=== PATIENT | female | born 1990 | race Caucasian/White ===

== ENCOUNTER 2017-06-24 05:37 | Inpatient (IN) | payer MEDICAID ==
[2017-06-24] MEDS ORDERED: Sodium Chloride 0.9% 10 ML Syringe FLUSH PRN (05:50)
[2017-06-24] MEDS ORDERED: Sodium Chloride 0.9% 2.5 ML Syringe FLUSH PRN (05:50)
[2017-06-24] MEDS ORDERED: ceFAZolin 2 GM in Premix Bag 1 BAG IV ONE (05:50)
[2017-06-24] MEDS ORDERED: Oxytocin/0.9 % Sodium Chloride 30 UNIT/500 ML BAG IV SCH (06:00)
[2017-06-24] MEDS ORDERED: Citric Acid/Sodium Citrate Solution 30 ML Cup PO SCH (06:00)
[2017-06-24] MEDS: Lactated Ringers 1,000 ML IV SCH ×4 (06:05→19:26)
[2017-06-24] MEDS ORDERED: Morphine PF 10 MG/10 ML SDV ONE (07:32)
[2017-06-24] MEDS ORDERED: Oxytocin 10 Units/1 ML SDV ONE ×2 (07:33→07:34)
--- NOTE | 2017-06-24 07:39 | PCM.PREANE ---
Preanesthetic Assessment - Anesthesia/Transfusion/Family Hx Anesthesia History: Prior Anesthesia Without Reaction Family History of Anesthesia Reaction: No - Review of Systems General: No Symptoms, Other (nasal congestion) Pulmonary: No Symptoms Cardiovascular: No Symptoms Gastrointestinal: No Symptoms Neurological: No Symptoms Other: Reports: None - Physical Assessment NPO Status Date: 06/23/17 (except for clear liq at 0300 today) Height: 1.68 m Weight: 97.976 kg ASA Class: 2 Mental Status: Alert & Oriented x3 Airway Class: Mallampati = 2 Dentition: Reports: Normal Dentition ROM/Head Extension: Full Lungs: Clear to Auscultation, Normal Respiratory Effort Cardiovascular: Regular Rate, Regular Rhythm - Lab Values: Laboratory Last Values WBC 10.37 K/uL (4.0-11.0) 06/23/17 12:37 RBC 3.77 M/uL (4.30-5.90) L 06/23/17 12:37 Hgb 10.8 g/dL (12.0-16.0) L 06/23/17 12:37 Hct 32.9 % (36.0-46.0) L 06/23/17 12:37 MCV 87.3 fL (80.0-98.0) 06/23/17 12:37 MCH 28.6 pg (27.0-32.0) 06/23/17 12:37 MCHC 32.8 g/dL (31.0-37.0) 06/23/17 12:37 RDW Std Deviation 42.7 fl (28.0-62.0) 06/23/17 12:37 RDW Coeff of Marisela 14 % (11.0-15.0) 06/23/17 12:37 Plt Count 219 K/uL (150-400) 06/23/17 12:37 MPV 11.60 fL (7.40-12.00) 06/23/17 12:37 Nucleated RBC % 0.0 /100WBC 06/23/17 12:37 Nucleated RBCs # 0 K/uL 06/23/17 12:37 Blood Type A POSITIVE 06/23/17 12:37 Antibody Screen NEGATIVE 06/23/17 12:37 - Allergies Allergies/Adverse Reactions: Allergies Allergy/AdvReac Type Severity Reaction Status Date / Time No Known Allergies Allergy Verified 06/24/17 05:48 - Acknowledgements Anesthesia Type Planned: Spinal Pt an Appropriate Candidate for the Planned Anesthesia: Yes Alternatives and Risks of Anesthesia Discussed w Pt/Guardian: Yes Pt/Guardian Understands and Agrees with Anesthesia Plan: Yes Additional Comments: plan: intrathecal duramorph for post op analgesia PreAnesthesia Questionnaire - Past Health History Medical/Surgical History: Denies 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 USE Smoking Status *Q: Current Every Day Smoker Tobacco Use Within Last Twelve Months: Cigarettes Second Hand Smoke Exposure: Yes Recreational Drug Use History: No - CURRENT (IN HOUSE) MEDS Current Meds: Current Medications Citric Acid/Sodium Citrate (Bicitra Solution) 30 ml PO .ONCE ROSALINDA Lactated Ringer's (Ringers, Lactated) 1,000 mls @ 500 mls/hr IV .BOLUS ROSALINDA Last Admin: 06/24/17 06:05 Dose: 500 mls/hr Oxytocin/Sodium Chloride (Oxytocin 30 Unit/500 Ml-Ns) 30 unit in 500 mls @ 250 mls/hr IV TITRATE ROSALINDA Sodium Chloride (Saline Flush) 10 ml FLUSH ASDIRECTED PRN PRN Reason: Keep Vein Open Sodium Chloride (Saline Flush) 2.5 ml FLUSH ASDIRECTED PRN PRN Reason: Keep Vein Open Discontinued Medications Cefazolin Sodium/Dextrose 2 gm (/ Premix) 50 mls @ 100 mls/hr IV ONETIME ONE Stop: 06/24/17 06:19 Morphine Sulfate (Duramorph Pf) Confirm Administered Dose 10 mg .ROUTE .STK-MED ONE Stop: 06/24/17 07:33 Oxytocin (Pitocin) Confirm Administered Dose 10 unit .ROUTE .STK-MED ONE Stop: 06/24/17 07:34
[2017-06-24] MEDS ORDERED: diphenhydrAMINE 50 MG/ML SDV IVPUSH PRN ×2 (08:38→10:13)
[2017-06-24] MEDS ORDERED: fentaNYL 100 MCG/2 ML SDV IVPUSH PRN (08:38)
[2017-06-24] MEDS ORDERED: Phenylephrine/Normal Saline 100 MCG/ML 10 ML Syringe ONE (08:39)
[2017-06-24] MEDS ORDERED: fentaNYL 100 MCG/2 ML SDV ONE (08:50)
[2017-06-24] MEDS ORDERED: Ondansetron 4 MG/2 ML SDV ONE (08:55)
[2017-06-24] MEDS ORDERED: Nalbuphine 10 MG/1 ML Vial ONE (08:59)
--- NOTE | 2017-06-24 10:09 | PCM.POSTAN ---
POST ANESTHESIA ASSESSMENT - MENTAL STATUS Mental Status: Alert, Oriented - RESPIRATORY Respiratory Status: Respiratory Rate WNL, Airway Patent, O2 Saturation Stable - CARDIOVASCULAR CV Status: Pulse Rate WNL, Blood Pressure Stable - GASTROINTESTINAL GI Status: No Symptoms - PAIN Pain Score: 0 - POST OP HYDRATION Hydration Status: Adequate & Stable
[2017-06-24] MEDS ORDERED: Ibuprofen 800 MG Tab PO PRN (10:13)
[2017-06-24] MEDS ORDERED: Bisacodyl 10 MG Supp RECTAL PRN (10:13)
[2017-06-24] MEDS ORDERED: Lanolin 100% Cream 7 GM Tube TOP PRN (10:13)
[2017-06-24] MEDS ORDERED: Ondansetron 4 MG/2 ML SDV IV PRN (10:13)
[2017-06-24] MEDS ORDERED: Acetaminophen/oxyCODONE 325-5 MG Tab PO PRN (10:13)
--- NOTE | 2017-06-24 10:24 | PCM.OPNOTE ---
- General Post-Op/Procedure Note Date of Surgery/Procedure: 06/24/17 Operative Procedure(s): Tertiary LTCS Findings: Live female delivered @ 838am , wt 3070g , 9/9 . Umbilical cord with 3VC, Omental adhesion to the posterior rectus muscle, Uterus closed in 1 layer Normal uterus , tubes and ovaries Pre Op Diagnosis: 26yo @ 39w0d for Tertiary LTCS Post-Op Diagnosis: 26yo now P3 s/p Tertiary LTCS Anesthesia Technique: Spinal Primary Surgeon: Nicole Bowers Anesthesia Provider: Esau Lanza Weekend Receptionist: MS Simeon Fluid Replacement, Intraop: 2,400 Output, Urine Amount: 300 EBL in mLs: 600 Condition: Good Free Text/Narrative:: Intake & Output 06/23/17 06/24/17 06/24/17 22:59 06:59 14:59 Intake Total 4500 Output Total 250 Balance 4250
[2017-06-24] MEDS ORDERED: Ketorolac 30 MG/ML SDV ONE (10:40)
[2017-06-24] MEDS: Ketorolac 30 MG/ML SDV IVPUSH SCH ×2 (10:43→16:11)
[2017-06-24] MEDS: Nalbuphine 10 MG/1 ML Vial IVPUSH PRN ×2 (12:20→17:48)
--- NOTE | 2017-06-24 12:55 | PCM48HPAN ---
Post Anesthesia Note - EVALUATION WITHIN 48HRS OF ANESTHETIC Vital Signs in Normal Range: Yes Patient Participated in Evaluation: Yes Respiratory Function Stable: Yes Airway Patent: Yes Cardiovascular Function Stable: Yes Hydration Status Stable: Yes Pain Control Satisfactory: Yes Nausea and Vomiting Control Satisfactory: Yes Mental Status Recovered: Yes
--- NOTE | 2017-06-25 00:20 | OR ---
SURGEON: RODGER PÉREZ DATE OF PROCEDURE: 06/24/2017 PREOPERATIVE DIAGNOSIS: A 26-year-old G2, P2-0-1-2 at 39 weeks for Tertiary lower transverse section section. POSTOPERATIVE DIAGNOSIS: Status post Tertiary lower transverse section. FLUIDS: I: 2400 URINE OUTPUT: 300. ESTIMATED BLOOD LOSS: 600. COMPLICATIONS: None. FINDINGS: Live male delivered at 8:38 a.m., weight was 3070 g, score was 9, 9, and there was some omental adhesion noted between the fascia, peritoneum and the muscle. INDICATIONS: The patient is a 26-year-old G4, P2-0-1-2 patient managed by Corinne Chacon [facility] The patient was informed of the risks, benefits, alternatives, and she was informed of the risk of infection, bleeding, and damage to surrounding structures. The patient agreed for the procedure and consent was signed. NARRATIVE: The patient was taken to the operating room, where spinal anesthesia was given without difficulty. The patient was placed in the dorsal supine position with a leftward tilt. A Pfannenstiel skin incision was made with a scalpel and carried down to the fascia with the Bovie. The fascia was then incised and extended laterally. Rectus muscle diastasis was noted . The fascia was inferiorly and superiorly with the aid of the scalpel and the diastasis was noted. The natural defect that was there due to the diastasis was noted and was extended upward and laterally to expose the bladder reflection. The Butch retractors was then placed to expose the lower uterine segment. Incision was made on the uterus at the lower uterine segment. The incision was extended upwards and laterally via manual traction. The fetus was found to be in cephalic position. The infant's head was brought to the level of the incision. The Allis clamp was used to rupture the membranes and with fundal pressure the head was delivered followed subsequently the shoulders and the body. The infant cried immediately. The cord was clamped and cut. Three-vessel cord was noted. Cord gases were taken. The was handed over to the awaiting circuit rider. The placenta was then removed and the uterus was then cleaned with a moist laparotomy sponge. Also, the Pitocin was started at this point. The uterine incision was closed in 1 layer with 0- vicryl in a continuous locking fashion. Hemostasis was noted. The tubes and ovaries were found to be normal and the peritoneum was not sutured though because it was adhered to the omentum. the rectus muscle was closed with 3 interrupted mattress sutures. The fascia was then closed with 0-Vicryl in a continuous fashion. The subcutaneous fat was closed. The skin was closed with 3-0 Vicryl on a Van needle. The instrument and pad counts were correct x2. Dr. Manish Jolly was present for the entire procedure. RAUL NICOLE /[id number] MTDKimberlee
[2017-06-25] MEDS: Docusate Sodium 100 MG Cap PO SCH ×3 (01:39→22:30)
[2017-06-25] MEDS: Ketorolac 30 MG/ML SDV IVPUSH SCH ×3 (01:39→13:32)
--- NOTE | 2017-06-25 08:53 | PCM.PNPP ---
- General Info Date of Service: 06/25/17 Admission Dx/Problem (Free Text): 26 yo P3 s/p Tertiary Cesaeran section , POD 1 Subjective Update: Patient denies any complains , has good pain control. blackman removed this AM, yet to void Functional Status: Reports: Pain Controlled, Tolerating Diet, Ambulating - Review of Systems General: Reports: No Symptoms HEENT: Reports: No Symptoms Pulmonary: Reports: No Symptoms Cardiovascular: Reports: No Symptoms Gastrointestinal: Reports: No Symptoms Genitourinary: Reports: No Symptoms Musculoskeletal: Reports: No Symptoms Skin: Reports: No Symptoms Neurological: Reports: No Symptoms - General Info Date of Service: 06/25/17 - Patient Data Vital Signs - Most Recent: Last Vital Signs Temp 36.5 C 06/24/17 16:00 Pulse 74 06/24/17 20:11 Resp 18 06/25/17 06:42 BP 134/62 06/24/17 20:11 Pulse Ox 95 06/25/17 06:42 Weight - Most Recent: 97.976 kg I&O - Last 24 Hours: Intake & Output 06/24/17 06/25/17 06/25/17 22:59 06:59 14:59 Intake Total 3602 1500 Output Total 925 2000 Balance 2677 -500 Lab Results - Last 24 Hours: Laboratory Results - last 24 hr 06/25/17 Range/Units 04:47 Hgb 9.6 L (12.0-16.0) g/dL Hct 29.3 L (36.0-46.0) % Med Orders - Current: Current Medications Bisacodyl (Dulcolax) 10 mg RECTAL .ONCE PRN PRN Reason: Constipation Citric Acid/Sodium Citrate (Bicitra Solution) 30 ml PO .ONCE ROSALINDA Last Admin: 06/24/17 07:48 Dose: 30 ml Diphenhydramine HCl (Benadryl) 25 mg IVPUSH Q6H PRN PRN Reason: Itching or Nausea Docusate Sodium (Colace) 100 mg PO BID ROSALINDA Last Admin: 06/25/17 01:39 Dose: 100 mg Emollient Ointment (Lansinoh Hpa) 0 gm TOP ASDIRECTED PRN PRN Reason: Sore Nipples Lactated Ringer's (Ringers, Lactated) 1,000 mls @ 500 mls/hr IV .BOLUS ROSALINDA Last Admin: 06/24/17 07:49 Dose: 999 mls/hr Oxytocin/Sodium Chloride (Oxytocin 30 Unit/500 Ml-Ns) 30 unit in 500 mls @ 250 mls/hr IV TITRATE [facility] Lactated Ringer's (Ringers, Lactated) 1,000 mls @ 125 mls/hr IV ASDIRECTED [facility] Last Admin: 06/24/17 19:26 Dose: 125 mls/hr Ibuprofen (Motrin) 800 mg PO Q8H PRN PRN Reason: mild pain or fever Ketorolac Tromethamine (Toradol) 30 mg IVPUSH Q6H [facility] Stop: 06/25/17 10:16 Last Admin: 06/25/17 06:37 Dose: 30 mg Ondansetron HCl (Zofran) 4 mg IV Q4H PRN PRN Reason: Nausea/Vomiting Oxycodone/Acetaminophen (Percocet 325-5 Mg) 1 tab PO ONETIME PRN PRN Reason: Pain (moderate 4-6) Oxycodone/Acetaminophen (Percocet 325-5 Mg) 1 tab PO Q4H PRN PRN Reason: Pain (moderate 4-6) Oxycodone/Acetaminophen (Percocet 325-5 Mg) 2 tab PO Q4H PRN PRN Reason: Pain (moderate 4-6) Sodium Chloride (Saline Flush) 10 ml FLUSH ASDIRECTED PRN PRN Reason: Keep Vein Open Sodium Chloride (Saline Flush) 2.5 ml FLUSH ASDIRECTED PRN PRN Reason: Keep Vein Open Discontinued Medications Diphenhydramine HCl (Benadryl) 25 mg IVPUSH Q4H PRN PRN Reason: Itching Stop: 06/25/17 08:39 Fentanyl (Sublimaze) 50 mcg IVPUSH Q5M PRN PRN Reason: Pain (severe 7-10) Stop: 06/25/17 08:39 Fentanyl (Sublimaze) Confirm Administered Dose 100 mcg .ROUTE .STK-MED ONE Stop: 06/24/17 08:51 Cefazolin Sodium/Dextrose 2 gm (/ Premix) 50 mls @ 100 mls/hr IV ONETIME ONE Stop: 06/24/17 06:19 Last Admin: 06/24/17 12:05 Dose: Not Given Ketorolac Tromethamine (Toradol) Confirm Administered Dose 30 mg .ROUTE .STK- MED ONE Stop: 06/24/17 10:41 Last Admin: 06/24/17 10:50 Dose: Not Given Morphine Sulfate (Duramorph Pf) Confirm Administered Dose 10 mg .ROUTE .STK-MED ONE Stop: 06/24/17 07:33 Nalbuphine HCl (Nubain) 5 mg IVPUSH Q3H PRN PRN Reason: Pruritis Stop: 06/25/17 08:39 Last Admin: 06/24/17 17:48 Dose: 5 mg Nalbuphine HCl (Nubain) Confirm Administered Dose 10 mg .ROUTE .STK-MED ONE Stop: 06/24/17 09:00 Ondansetron HCl (Zofran) Confirm Administered Dose 4 mg .ROUTE .STK-MED ONE Stop: 06/24/17 08:56 Oxytocin (Pitocin) Confirm Administered Dose 10 unit .ROUTE .STK-MED ONE Stop: 06/24/17 07:34 Oxytocin (Pitocin) Confirm Administered Dose 10 unit .ROUTE .STK-MED ONE Stop: 06/24/17 07:35 Phenylephrine HCl (Phenylephrine In Ns 100 Mcg/Ml) Confirm Administered Dose 1 mg .ROUTE .STK-MED ONE Stop: 06/24/17 08:40 - Interaction Infant Disposition, : to Nursery Infant Feeding: Attempted ; Nursed Fair/Poor Support Person: Mother, Significant Other - Recovery Exam Fundal Tone: Firm Fundal Level: 2 Fingerbreadths Below Umbilicus Fundal Placement: Left Lochia Amount: Small Lochia Color: Rubra/Red Perineum Description: Intact, Minimal Bruising/Swelling Episiotomy/Laceration: Approximated Bladder Status: Indwelling Catheter in Place Urinary Elimination: Indwelling Catheter - Exam General: Alert, Oriented Lungs: Clear to Auscultation Cardiovascular: Regular Rate, Regular Rhythm GI/Abdominal Exam: Normal Bowel Sounds Extremities: Normal Inspection Wound/Incisions: Other (Pfannestiel skin incision with steristrips - mildly soaked with blood , will change tomorrow ) Psy/Mental Status: Alert - Problem List & Annotations (1) Status post repeat low transverse section SNOMED Code(s): 671713324, 697967023, 157300701 Code(s): Z98.891 - HISTORY OF UTERINE SCAR FROM PREVIOUS SURGERY Status: Acute Current Visit: Yes - Problem List Review Problem List Initiated/Reviewed/Updated: Yes - My Orders Last 24 Hours: My Active Orders 06/24/17 10:13 Patient Status [ADT] Routine Ambulate [RC] PER UNIT ROUTINE Communication Order [RC] PER UNIT ROUTINE Communication Order [RC] PER UNIT ROUTINE Communication Order [RC] Per Unit Routine May Shower [RC] ASDIRECTED RT Incentive Spirometry [RC] Q2HWA Vital Signs [RC] PER UNIT ROUTINE Acetaminophen/oxyCODONE [Percocet 325-5 MG] 1 tab PO Q4H PRN Acetaminophen/oxyCODONE [Percocet 325-5 MG] 2 tab PO Q4H PRN Bisacodyl [Dulcolax] 10 mg RECTAL .ONCE PRN Ibuprofen [Motrin] 800 mg PO Q8H PRN Lanolin [Lansinoh HPA] See Dose Instructions TOP ASDIRECTED PRN Ondansetron [Zofran] 4 mg IV Q4H PRN diphenhydrAMINE [Benadryl] 25 mg IVPUSH Q6H PRN Assess Lochia [WOMSER] Per Unit Routine Assess Uterine Involution [WOMSER] Per Unit Routine Breast Pump [WOMSER] Per Unit Routine Peripheral IV Discontinue [OM.PC] Routine Sequential Compression Device [OM.PC] Per Unit Routine 06/24/17 10:14 Antiembolic Devices [RC] PER UNIT ROUTINE 06/24/17 10:15 Ketorolac [Toradol] 30 mg IVPUSH Q6H Lactated Ringers [Ringers, Lactated] 1,000 ml IV ASDIRECTED 06/24/17 10:20 Notify Provider Vital Signs [RC] ASDIRECTED 06/24/17 10:30 Notify Provider Intake and Out [RC] ASDIRECTED 06/24/17 21:00 Docusate Sodium [Colace] 100 mg PO BID 06/24/17 Lunch Regular Diet [DIET] Regular Diet [DIET] - Assessment Assessment:: 26 yo P3 s/p Tertiary POD1 - stable - Plan Plan:: Plan Diet Ambulate Follow void Pain control as need Remove steristrips tomorrow Possible d/c home tomorrow
[2017-06-25] MEDS ORDERED: Ketorolac 30 MG/ML SDV ONE (13:26)
[2017-06-25] MEDS: Acetaminophen/oxyCODONE 325-5 MG Tab PO PRN ×2 (16:11→16:14)
[2017-06-26] MEDS: Acetaminophen/oxyCODONE 325-5 MG Tab PO PRN ×2 (02:14→09:06)
[2017-06-26 07:49] VITALS: BP 125/57
[2017-06-26] MEDS: Docusate Sodium 100 MG Cap PO SCH (09:05)
--- NOTE | 2017-06-26 09:08 | PCM.PNPP ---
- General Info Date of Service: 06/26/17 Admission Dx/Problem (Free Text): 26 yo P3 s/p Tertiary Cesaeran section , POD 2 Subjective Update: Patient denies any complains , has good pain control. blackman out voided Functional Status: Reports: Pain Controlled, Tolerating Diet, Ambulating, Urinating - Review of Systems General: Reports: No Symptoms HEENT: Reports: No Symptoms Pulmonary: Reports: No Symptoms Cardiovascular: Reports: No Symptoms Gastrointestinal: Reports: No Symptoms Genitourinary: Reports: No Symptoms Musculoskeletal: Reports: No Symptoms Skin: Reports: No Symptoms Neurological: Reports: No Symptoms Psychiatric: Reports: No Symptoms - General Info Date of Service: 06/26/17 - Patient Data Vital Signs - Most Recent: Last Vital Signs Temp 36.6 C 06/26/17 07:28 Pulse 77 06/26/17 07:28 Resp 17 06/26/17 07:28 BP 125/57 L 06/26/17 07:28 Pulse Ox 93 L 06/26/17 07:28 Weight - Most Recent: 97.976 kg Med Orders - Current: Current Medications Bisacodyl (Dulcolax) 10 mg RECTAL .ONCE PRN PRN Reason: Constipation Last Admin: 06/25/17 16:12 Dose: 10 mg Citric Acid/Sodium Citrate (Bicitra Solution) 30 ml PO .ONCE ROSALINDA Last Admin: 06/24/17 07:48 Dose: 30 ml Diphenhydramine HCl (Benadryl) 25 mg IVPUSH Q6H PRN PRN Reason: Itching or Nausea Docusate Sodium (Colace) 100 mg PO BID ROSALINDA Last Admin: 06/25/17 22:30 Dose: 100 mg Emollient Ointment (Lansinoh Hpa) 0 gm TOP ASDIRECTED PRN PRN Reason: Sore Nipples Lactated Ringer's (Ringers, Lactated) 1,000 mls @ 500 mls/hr IV .BOLUS ROSALINDA Last Admin: 06/24/17 07:49 Dose: 999 mls/hr Oxytocin/Sodium Chloride (Oxytocin 30 Unit/500 Ml-Ns) 30 unit in 500 mls @ 250 mls/hr IV TITRATE ROSALINDA Lactated Ringer's (Ringers, Lactated) 1,000 mls @ 125 mls/hr IV ASDIRECTED ROSALINDA Last Admin: 06/24/17 19:26 Dose: 125 mls/hr Ibuprofen (Motrin) 800 mg PO Q8H PRN PRN Reason: mild pain or fever Ondansetron HCl (Zofran) 4 mg IV Q4H PRN PRN Reason: Nausea/Vomiting Oxycodone/Acetaminophen (Percocet 325-5 Mg) 1 tab PO ONETIME PRN PRN Reason: Pain (moderate 4-6) Oxycodone/Acetaminophen (Percocet 325-5 Mg) 1 tab PO Q4H PRN PRN Reason: Pain (moderate 4-6) Last Admin: 06/26/17 02:14 Dose: 1 tab Oxycodone/Acetaminophen (Percocet 325-5 Mg) 2 tab PO Q4H PRN PRN Reason: Pain (moderate 4-6) Sodium Chloride (Saline Flush) 10 ml FLUSH ASDIRECTED PRN PRN Reason: Keep Vein Open Sodium Chloride (Saline Flush) 2.5 ml FLUSH ASDIRECTED PRN PRN Reason: Keep Vein Open Discontinued Medications Diphenhydramine HCl (Benadryl) 25 mg IVPUSH Q4H PRN PRN Reason: Itching Stop: 06/25/17 08:39 Fentanyl (Sublimaze) 50 mcg IVPUSH Q5M PRN PRN Reason: Pain (severe 7-10) Stop: 06/25/17 08:39 Fentanyl (Sublimaze) Confirm Administered Dose 100 mcg .ROUTE .STK-MED ONE Stop: 06/24/17 08:51 Cefazolin Sodium/Dextrose 2 gm (/ Premix) 50 mls @ 100 mls/hr IV ONETIME ONE Stop: 06/24/17 06:19 Last Admin: 06/24/17 12:05 Dose: Not Given Ketorolac Tromethamine (Toradol) 30 mg IVPUSH Q6H ROSALINDA Stop: 06/25/17 10:16 Last Admin: 06/25/17 13:32 Dose: 30 mg Ketorolac Tromethamine (Toradol) Confirm Administered Dose 30 mg .ROUTE .STK- MED ONE Stop: 06/24/17 10:41 Last Admin: 06/24/17 10:50 Dose: Not Given Ketorolac Tromethamine (Toradol) Confirm Administered Dose 30 mg .ROUTE .STK- MED ONE Stop: 06/25/17 13:27 Morphine Sulfate (Duramorph Pf) Confirm Administered Dose 10 mg .ROUTE .STK-MED ONE Stop: 06/24/17 07:33 Nalbuphine HCl (Nubain) 5 mg IVPUSH Q3H PRN PRN Reason: Pruritis Stop: 06/25/17 08:39 Last Admin: 06/24/17 17:48 Dose: 5 mg Nalbuphine HCl (Nubain) Confirm Administered Dose 10 mg .ROUTE .STK-MED ONE Stop: 06/24/17 09:00 Ondansetron HCl (Zofran) Confirm Administered Dose 4 mg .ROUTE .STK-MED ONE Stop: 06/24/17 08:56 Oxytocin (Pitocin) Confirm Administered Dose 10 unit .ROUTE .STK-MED ONE Stop: 06/24/17 07:34 Oxytocin (Pitocin) Confirm Administered Dose 10 unit .ROUTE .STK-MED ONE Stop: 06/24/17 07:35 Phenylephrine HCl (Phenylephrine In Ns 100 Mcg/Ml) Confirm Administered Dose 1 mg .ROUTE .STK-MED ONE Stop: 06/24/17 08:40 - Interaction Infant Disposition, : Micro to Nursery Feeding: Attempted ; Nursed Fair/Poor Support Person: Mother, Significant Other - Recovery Exam Fundal Tone: Firm Fundal Level: 1 Fingerbreadths Below Umbilicus Fundal Placement: Midline Lochia Amount: Scant Lochia Color: Rubra/Red Perineum Description: Intact, Minimal Bruising/Swelling Episiotomy/Laceration: None Bladder Status: Voiding Urinary Elimination: Indwelling Catheter - Exam General: Alert Lungs: Clear to Auscultation Cardiovascular: Regular Rate, Regular Rhythm GI/Abdominal Exam: Normal Bowel Sounds Extremities: Normal Inspection Wound/Incisions: Dressing Dry and Intact, Other (pfannestiel skin incision with steristrip in place c/d/i) Psy/Mental Status: Alert - Problem List & Annotations (1) Status post repeat low transverse section SNOMED Code(s): 351109085, 160335394, 911022913 Code(s): Z98.891 - HISTORY OF UTERINE SCAR FROM PREVIOUS SURGERY Status: Acute Current Visit: Yes - Problem List Review Problem List Initiated/Reviewed/Updated: Yes - Assessment Assessment:: 26 yo P3 s/p Tertiary POD2 - stable - Plan Plan:: Plan steristrips removed, changed d/c home tomorrow
== END 2017-06-26 10:30 | disposition home or self-care (01) | DRG 766 ==
LOC: MW.OB 05:37
PROVIDERS: ADMIT Obstetrics & Gynecology; ATTEND Obstetrics & Gynecology
PROC: 10D00Z1 Extraction of Products of Conception, Low, Open Approach (ICD-10-PCS; principal; 2017-06-24)
DX: O34.211 Maternal care for low transverse scar from previous cesarean delivery (principal); O99.62 Diseases of the digestive system complicating childbirth; K66.0 Peritoneal adhesions (postprocedural) (postinfection); Z3A.38 38 weeks gestation of pregnancy; Z37.0 Single live birth
CPT/HCPCS: 01961; 36415; 59025; 85014; 85018; 85027; 86850; 86900; 86901; A9270-GY; J1885; J2270; J2300; J2405; J2590; J3010; J7120

== ENCOUNTER 2017-08-01 13:09 | Emergency (ER) | payer MEDICAID ==
[2017-08-01 13:25] VITALS: BP 107/74
[2017-08-01] MEDS ORDERED: Sodium Chloride 0.9% 1,000 ML IV ONE (13:27)
--- NOTE | 2017-08-01 13:34 | EDM.PDOC ---
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 Status post 5 weeks ago, June 24, 2017. States the was successful without any complications or postop infections. Had moderate vaginal bleeding post 3 weeks. Since that time has had slight intermittent spotting. Last night she states that she started having some low back and suprapubic pain and cramping which was followed by heavy vaginal bleeding. Went to bed with a "heavy duty pad" and woke up with excessive blood underclothes. She proceeded to take a shower and clean herself up and put another pad on prior to going to work. 45 minutes into her work shift she states she went to the bathroom and felt pressure and had some dysuria, she had bled through her pad and decided to come to the emergency room. Today she has had no low back pain or cramping. She denies feeling lightheaded, near syncope, chest pain, shortness of breath or palpitations. Vital signs are stable in 2013 with most recent June 24, 2017. 4 para 3 Review of systems: As per history of present illness and below otherwise all systems reviewed and negative. Past medical history: As per history of present illness and as reviewed below otherwise noncontributory. Surgical history: As per history of present illness and as reviewed below otherwise noncontributory. Social history: No reported history of drug or alcohol abuse. Family history: As per history of present illness and as reviewed below otherwise noncontributory. Physical exam: Gen.: Well-developed and well-nourished 26-year-old female. Appears nontoxic. Alert and oriented. HEENT: Atraumatic, normocephalic, pupils reactive, negative for conjunctival pallor or scleral icterus, mucous membranes moist, throat clear, neck supple, nontender, trachea midline. Lungs: Clear to auscultation, breath sounds equal bilaterally, chest nontender. Heart: S1S2, regular, negative for clicks, rubs, or JVD. Abdomen: Soft, nondistended, nontender in all 4 quadrants, no suprapubic tenderness. Negative for masses or hepatosplenomegaly. Negative for costovertebral tenderness. Pelvis: Stable nontender. Genitourinary: A pelvic exam was done with a lapel padder blindstitch. External genitalia is normal. Speculum exam shows that the cervix is closed there is fresh blood in the vaginal vault. Tolerated well. Rectal: Deferred. Skin: incision appears to be healing well. No signs of infection. Well approximated. No rashes or lesions noted. Extremities: Atraumatic, negative for cords or calf pain. Neurovascular unremarkable. Neuro: Awake, alert, oriented. Cranial nerves II through XII unremarkable. Cerebellum unremarkable. Motor and sensory unremarkable throughout. Exam nonfocal. Patient's vital signs continue to remain within normal limits. Patient denies any feeling of syncope or lightheadedness. Today's hemoglobin is 12.0, this was shared with the patient. Since being here she has had not needed to change her pad. She has been up ambulating to the bathroom and did not have any lightheaded or dizziness. She was steady on her feet. We discussed the importance of following up with her primary care provider/OBGYN within the next week to follow-up on this concern. She needs to return to the emergency room if she has any lightheadedness, dizziness, syncopal episodes as we discussed. She voices understanding and is agreeable to plan of care. Denies any further questions at this time Diagnostics: CBC, CMP, PT/INR, pelvic exam Therapeutics: IV fluid Impression: Dysfunctional uterine bleeding Plan: 1. Please pay close attention to the amount or bleeding; if you begin to feel lightheaded, dizzy, or like he'll pass out please return to the emergency room. 2. Ensure good nutrition and stay well hydrated. 3. As we discussed it's important that you follow-up with your BEAN SNIPPER within the next week. Return to the ED as needed and as discussed. Definitive disposition and diagnosis as appropriate pending reevaluation and review of above. Duration: Day(s): - Related Data Allergies Allergy/AdvReac Type Severity Reaction Status Date / Time No Known Allergies Allergy Verified 08/01/17 13:19 Home Meds: Home Meds . 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 ED EXAM, RENAL/ - Physical Exam Exam: See Below (See dictation) Course - Vital Signs Last Recorded V/S: Last Vital Signs Temp 36.1 C 08/01/17 13:19 Pulse 92 08/01/17 13:19 Resp 18 08/01/17 13:19 BP 107/74 08/01/17 13:19 Pulse Ox 97 08/01/17 13:19 - Orders/Labs/Meds Orders: Active Orders 24 hr Category Date Time Status CULTURE URINE [RM] Stat Lab 08/01/17 15:28 Uncollected Labs: Laboratory Tests 08/01/17 08/01/17 08/01/17 Range/Units 13:54 13:54 13:54 WBC 11.10 H (4.0-11.0) K/uL RBC 4.38 (4.30-5.90) M/uL Hgb 12.2 (12.0-16.0) g/dL Hct 37.7 (36.0-46.0) % MCV 86.1 (80.0-98.0) fL MCH 27.9 (27.0-32.0) pg MCHC 32.4 (31.0-37.0) g/dL RDW Std Deviation 42.6 (28.0-62.0) fl RDW Coeff of Marisela 14 (11.0-15.0) % Plt Count 220 (150-400) K/uL MPV 11.70 (7.40-12.00) fL Add Manual Diff YES Neutrophils % (Manual) 54 (48.0-80.0) % Lymphocytes % (Manual) 35 (16.0-40.0) % Monocytes % (Manual) 7 (0.0-15.0) % Eosinophils % (Manual) 4 (0.0-7.0) % Nucleated RBC % 0.0 /100WBC Absolute Seg Neuts 6.0 H (1.4-5.7) Lymphocytes # (Manual) 3.9 H (0.6-2.4) Monocytes # (Manual) 0.8 (0.0-0.8) Eosinophils # (Manual) 0.4 (0.0-0.7) Nucleated RBCs # 0 K/uL INR 0.95 (0.86-1.11) Sodium 140 (136-146) mmol/L Potassium 3.5 (3.5-5.1) mmol/L Chloride 108 (98-110) mmol/L Carbon Dioxide 23 (21-31) mmol/L BUN 21 (6.0-23.0) mg/dL Creatinine 0.7 (0.6-1.5) mg/dL Est Cr Clr Drug Dosing 116.01 mL/min Estimated GFR (MDRD) > 60.0 ml/min Glucose 102 (60-110) mg/dL Calcium 9.1 (8.8-10.8) mg/dL Total Bilirubin 0.2 (0.1-1.5) mg/dL AST 27 (5-40) IU/L ALT 53 (8-54) IU/L Alkaline Phosphatase 87 (40-150) Total Protein 7.3 (6.0-8.0) g/dL Albumin 4.2 (3.5-5.0) g/dL Globulin 3.1 (2.0-3.5) g/dL Albumin/Globulin Ratio 1.4 (1.3-2.8) Urine Color Urine Appearance Urine pH (5.0-8.0) Ur Specific [place] (1.001-1.035) Urine Protein (NEGATIVE) mg/dL Urine Glucose (UA) (NEGATIVE) mg/dL Urine Ketones (NEGATIVE) mg/dL Urine Occult Blood (NEGATIVE) Urine Nitrite (NEGATIVE) Urine Bilirubin (NEGATIVE) Urine Urobilinogen (<2.0) EU/dL Ur Leukocyte Esterase (NEGATIVE) Urine RBC (0-2/HPF) Urine WBC (0-5/HPF) Ur Epithelial Cells (NONE-FEW) Urine Bacteria (NEGATIVE) Urine HCG, Qual (NEGATIVE) 08/01/17 08/01/17 Range/Units 15:05 15:05 WBC (4.0-11.0) K/uL RBC (4.30-5.90) M/uL Hgb (12.0-16.0) g/dL Hct (36.0-46.0) % MCV (80.0-98.0) fL MCH (27.0-32.0) pg MCHC (31.0-37.0) g/dL RDW Std Deviation (28.0-62.0) fl RDW Coeff of Marisela (11.0-15.0) % Plt Count (150-400) K/uL MPV (7.40-12.00) fL Add Manual Diff Neutrophils % (Manual) (48.0-80.0) % Lymphocytes % (Manual) (16.0-40.0) % Monocytes % (Manual) (0.0-15.0) % Eosinophils % (Manual) (0.0-7.0) % Nucleated RBC % /100WBC Absolute Seg Neuts (1.4-5.7) Lymphocytes # (Manual) (0.6-2.4) Monocytes # (Manual) (0.0-0.8) Eosinophils # (Manual) (0.0-0.7) Nucleated RBCs # K/uL INR (0.86-1.11) Sodium (136-146) mmol/L Potassium (3.5-5.1) mmol/L Chloride (98-110) mmol/L Carbon Dioxide (21-31) mmol/L BUN (6.0-23.0) mg/dL Creatinine (0.6-1.5) mg/dL Est Cr Clr Drug Dosing mL/min Estimated GFR (MDRD) ml/min Glucose (60-110) mg/dL Calcium (8.8-10.8) mg/dL Total Bilirubin (0.1-1.5) mg/dL AST (5-40) IU/L ALT (8-54) IU/L Alkaline Phosphatase (40-150) Total Protein (6.0-8.0) g/dL Albumin (3.5-5.0) g/dL Globulin (2.0-3.5) g/dL Albumin/Globulin Ratio (1.3-2.8) Urine Color ORANGE Urine Appearance CLOUDY Urine pH 5.5 (5.0-8.0) Ur Specific [place] 1.025 (1.001-1.035) Urine Protein TRACE (NEGATIVE) mg/dL Urine Glucose (UA) NEGATIVE (NEGATIVE) mg/dL Urine Ketones NEGATIVE (NEGATIVE) mg/dL Urine Occult Blood LARGE H (NEGATIVE) Urine Nitrite NEGATIVE (NEGATIVE) Urine Bilirubin NEGATIVE (NEGATIVE) Urine Urobilinogen 0.2 (<2.0) EU/dL Ur Leukocyte Esterase TRACE (NEGATIVE) Urine RBC TOO NUMBEROUS TO CT H (0-2/HPF) Urine WBC 1-2 (0-5/HPF) Ur Epithelial Cells OCCASIONAL (NONE-FEW) Urine Bacteria FEW (NEGATIVE) Urine HCG, Qual NEGATIVE (NEGATIVE) Meds: Medications Discontinued Medications Generic Name Dose Route Start Last Admin Trade Name Freq PRN Reason Stop Dose Admin Sodium Chloride 1,000 mls @ 999 mls/hr 08/01/17 13:27 08/01/17 13:57 Normal Saline IV 08/01/17 14:27 999 mls/hr .Bolus ONE Administration Departure - Departure Time of Disposition: 15:18 Disposition: Home, Self-Care 01 Clinical Impression: Dysfunctional uterine bleeding - Discharge Information Referrals: PCP,None [Primary Care Provider] - Forms: ED Department Discharge Additional Instructions: My general discharge The following information is given to patients seen in the emergency department who are being discharged to home. This information is to outline your options for follow-up care. We provide all patients seen in our emergency department with a follow-up referral. The need for follow-up, as well as the timing and circumstances, are variable depending upon the specifics of your emergency department visit. If you don't have a primary care physician on staff, we will provide you with a referral. We always advise you to contact your personal physician following an emergency department visit to inform them of the circumstance of the visit and for follow-up with them and/or the need for any referrals to a consulting specialist. The emergency department will also refer you to a specialist when appropriate. This referral assures that you have the opportunity for follow-up care with a specialist. All of these measure are taken in an effort to provide you with optimal care, which includes your follow-up. Under all circumstances we always encourage you to contact your private physician who remains a resource for coordinating your care. When calling for follow-up care, please make the office aware that this follow-up is from your recent emergency room visit. If for any reason you are refused follow-up, please contact the [facility] Emergency Department at and asked to speak to the emergency department charge nurse. [facility] [address] [place] [id number] [facility] - [facility] [address] [address] 1. Please pay close attention to the amount or bleeding; if you begin to feel lightheaded, dizzy, or like he'll pass out please return to the emergency room. 2. Ensure good nutrition and stay well hydrated. 3. As we discussed it's important that you follow-up with your BEAN SNIPPER within the next week. Return to the ED as needed and as discussed. - My Orders Last 24 Hours: My Active Orders 08/01/17 15:28 CULTURE URINE [] Stat - Assessment/Plan Last 24 Hours: My Active Orders 08/01/17 15:28 CULTURE URINE [RM] Stat
[2017-08-01 14:30] LABS: CHLORIDE,CL 108 mmol/L (98-110); SODIUM,NA 140 mmol/L (136-146)
== END 2017-08-01 15:57 | disposition home or self-care (01) ==
LOC: MW.ED 13:09
DX: O72.1 Other immediate postpartum hemorrhage (principal); O99.335 Smoking (tobacco) complicating the puerperium; F17.210 Nicotine dependence, cigarettes, uncomplicated
CPT/HCPCS: 80053; 81001; 81025; 85025; 85610; 87086; 96360; 96361; 99284; J7040; 99283

== ENCOUNTER 2017-11-03 09:19 | Emergency (ER) | payer MEDICAID ==
[2017-11-03 09:52] VITALS: BP 129/64
--- NOTE | 2017-11-03 10:07 | EDM.PDOC ---
<Haresh Beltre J - Last Filed: 11/03/17 10:23> ED HPI GENERAL MEDICAL PROBLEM - General Chief Complaint: Chest Pain Stated Complaint: CHEST PAIN Time Seen by Provider: 11/03/17 10:07 - History of Present Illness INITIAL COMMENTS - FREE TEXT/NARRATIVE: HISTORY AND PHYSICAL: History of present illness: Patient to 27-year-old white female presents with concern of chest pain 4 days this is worse with movement she had similar episode approximately 1 month prior this been no trauma there is no associated palpitations shortness of breath nausea vomiting diaphoresis or other concern. Patient is no history of pulmonary embolism or DVT she is not on oral contraceptives. Review of systems: As per history of present illness and below otherwise all systems reviewed and negative. Past medical history: As per history of present illness and as reviewed below otherwise noncontributory. Surgical history: As per history of present illness and as reviewed below otherwise noncontributory. Social history: No reported history of drug or alcohol abuse. Family history: As per history of present illness and as reviewed below otherwise noncontributory. Physical exam: HEENT: Atraumatic, normocephalic, pupils reactive, negative for conjunctival pallor or scleral icterus, mucous membranes moist, throat clear, neck supple, nontender, trachea midline. Lungs: Clear to auscultation, breath sounds equal bilaterally, chest nontender. Heart: S1S2, regular, negative for clicks, rubs, or JVD. Abdomen: Soft, nondistended, nontender. Negative for masses or hepatosplenomegaly. Negative for costovertebral tenderness. Pelvis: Stable nontender. Genitourinary: Deferred. Rectal: Deferred. Extremities: Atraumatic, negative for cords or calf pain. Neurovascular unremarkable. Neuro: Awake, alert, oriented. Cranial nerves II through XII unremarkable. Cerebellum unremarkable. Motor and sensory unremarkable throughout. Exam nonfocal. Diagnostics: Chest x-ray EKG pulse oximetry Therapeutics: Toradol 60 mg IM Impression: #1 atypical chest pain probable muscle skeletal etiology Definitive disposition and diagnosis as appropriate pending reevaluation and review of above. - Related Data Allergies Allergy/AdvReac Type Severity Reaction Status Date / Time No Known Allergies Allergy Verified 11/03/17 09:29 Home Meds: Home Meds . [No Known Home Meds] 08/01/17 [History] ED ROS GENERAL - Review of Systems Review Of Systems: ROS reveals no pertinent complaints other than HPI. ED EXAM, GENERAL - Physical Exam Exam: See Below (The dictation) Course - Vital Signs Last Recorded V/S: Last Vital Signs Temp 97.1 F 11/03/17 09:51 Pulse 83 11/03/17 10:00 Resp 18 11/03/17 10:00 BP 129/64 11/03/17 10:00 Pulse Ox 97 11/03/17 10:00 - Orders/Labs/Meds Labs: Laboratory Tests 11/03/17 Range/Units 09:52 HCG, Qual NEGATIVE (NEG) Departure - Departure Time of Disposition: 10:25 Disposition: Home, Self-Care 01 Condition: Good Clinical Impression: Atypical chest pain Instructions: Nonspecific Chest Pain, [id number] Referrals: PCP,None [Primary Care Provider] - Forms: ED Department Discharge Additional Instructions: The following information is given to patients seen in the emergency department who are being discharged to home. This information is to outline your options for follow-up care. We provide all patients seen in our emergency department with a follow-up referral. The need for follow-up, as well as the timing and circumstances, are variable depending upon the specifics of your emergency department visit. If you don't have a primary care physician on staff, we will provide you with a referral. We always advise you to contact your personal physician following an emergency department visit to inform them of the circumstance of the visit and for follow-up with them and/or the need for any referrals to a consulting specialist. The emergency department will also refer you to a specialist when appropriate. This referral assures that you have the opportunity for followup care with a specialist. All of these measure are taken in an effort to provide you with optimal care, which includes your followup. Under all circumstances we always encourage you to contact your private physician who remains a resource for coordinating your care. When calling for followup care, please make the office aware that this follow-up is from your recent emergency room visit. If for any reason you are refused follow-up, please contact the [facility] emergency department at and asked to speak to the emergency department charge nurse. 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 ED EXAM, GENERAL - Physical Exam Exam: See Below Course - Orders/Labs/Meds Labs: Laboratory Tests 11/03/17 Range/Units 09:52 HCG, Qual NEGATIVE (NEG) Departure - Departure Condition: Good
--- NOTE | 2017-11-03 10:40 | CR ---
EXAMINATION: Portable chest radiograph. HISTORY: Shortness of breath. FINDINGS: The trachea is midline. The cardiomediastinal silhouette is within normal limits. No pulmonary infilt rates, effusions or pneumothorax. Osseous structures appear unremarkable. IMPRESSION: No acute cardiopulmonary process.
== END 2017-11-03 11:01 | disposition home or self-care (01) ==
LOC: MW.ED 09:19
DX: R07.89 Other chest pain (principal); F17.210 Nicotine dependence, cigarettes, uncomplicated
CPT/HCPCS: 36415; 71045; 71045-26; 84703; 93005; 99284; 99285-25

== ENCOUNTER 2019-09-23 12:35 | Emergency (ER) | payer SELFPAY ==
[2019-09-23 12:56] VITALS: BP 122/71; PULSE 89
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
--- NOTE | 2019-09-23 15:24 | CR ---
Chest and bilateral ribs: Frontal view of the chest was obtained as well as an additional 4 view showing the right and left ribs. Comparison: No previous rib exam. Heart size and mediastinum are normal. Lungs are clear. Healing fracture is noted within the 10th rib with nonbridging callus. No additional rib abnormality is appreciated. Impression: 1. Incompletely healed fracture within the right 10th rib. 2. Nothing acute is otherwise seen on accompanying chest x-ray. Diagnostic code #2 This report was dictated in [place] Standard Time
--- NOTE | 2019-09-23 15:24 | CR ---
Thoracic spine: AP and lateral views of the thoracic spine were obtained. Comparison: No previous thoracic spine imaging. Vertebral body heights and disc spaces are maintained. Pedicles are intact. No subluxation or fracture is seen. Impression: 1. No abnormality is appreciated on 2 view thoracic spine study. Diagnostic code #1 This report was dictated in [place] Standard Time
== END 2019-09-23 16:10 | disposition home or self-care (01) ==
LOC: MW.ED 12:35
DX: R07.81 Pleurodynia (principal); M54.6 Pain in thoracic spine; N30.00 Acute cystitis without hematuria; F17.210 Nicotine dependence, cigarettes, uncomplicated
CPT/HCPCS: 71111; 71111-26; 72072; 72072-26; 81001; 81025; 87086; 99283-25

== ENCOUNTER 2019-12-01 23:27 | Observation (INO) | payer MEDICAID, OTHER ==
[2019-12-01] MEDS ORDERED: LORazepam 2 MG/ML SDV ONE (23:32)
[2019-12-01] MEDS ORDERED: LORazepam 2 MG/ML SDV IVPUSH ONE (23:35)
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
[2019-12-02] MEDS ORDERED: Iopamidol 755 MG/ML 500 ML Multipack Bottle IVPUSH ONE (00:03)
[2019-12-02 00:27] LABS: BLOOD UREA NITROGEN,BUN 14 mg/dL (7.0-18.0); CARBON DIOXIDE,CO2 25.6 mmol/L (21.0-32.0); CHLORIDE,CL 106 mmol/L (98-107); GLUCOSE RANDOM 122 mg/dL (74-106); LIPASE 602 U/L (73-393); POTASSIUM,K 3.1 mmol/L (3.5-5.1); SODIUM,NA 144 mmol/L (136-145)
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
[2019-12-02] MEDS ORDERED: Morphine 4 MG/ML Syringe IVPUSH ONE ×2 (00:42)
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
[2019-12-02] MEDS ORDERED: Morphine 2 MG/ML Syringe IVPUSH ONE (02:24)
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
[2019-12-02] MEDS: Lactated Ringers 1,000 ML IV SCH ×2 (05:16→15:34)
[2019-12-02] MEDS: Morphine 2 MG/ML Syringe IVPUSH PRN ×3 (05:20→22:21)
[2019-12-02] MEDS ORDERED: HYDROmorphone 2 MG Tab PO PRN ×2 (08:11→08:51)
[2019-12-02] MEDS: HYDROmorphone 2 MG Tab PO PRN ×2 (09:28→18:37)
--- NOTE | 2019-12-02 15:26 | PCM.SN ---
- Free Text/Narrative Note: h/p admission, dictated; 000084
[2019-12-02] MEDS: Acetaminophen 325 MG Tab PO PRN ×2 (15:42→23:45)
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
--- NOTE | 2019-12-02 17:03 | PCM.SN ---
- Free Text/Narrative Note: pt doing very well after a good sleep, stayed up and playing w cellphone all day ; hemodynamically stable, pain in good control, no desat; 1) resend UA, await result 2) pulm contussion, pt doing well 3) post 1st rib fx, consult ortho, conservative management, no surgery 4) R mandibular angle fx, nondisplace; discussed w [facility], Dr. Smith ([phone]); ok to have mechanical soft diet; call in the morning to make appointment to be seen Friday, possible surgery, if indicate, Friday; Above plan dw pt and fam member, voiced understanding
[2019-12-02] MEDS: Cephalexin 500 MG Cap PO SCH ×2 (17:34→23:45)
[2019-12-03] MEDS: Lactated Ringers 1,000 ML IV SCH (01:43)
[2019-12-03] MEDS: HYDROmorphone 2 MG Tab PO PRN ×2 (04:57→14:08)
[2019-12-03] MEDS: Cephalexin 500 MG Cap PO SCH ×2 (05:00→12:33)
[2019-12-03] MEDS: Morphine 2 MG/ML Syringe IVPUSH PRN (09:08)
[2019-12-03 11:27] VITALS: BP 116/66; PULSE 68
[2019-12-03] MEDS: Acetaminophen 325 MG Tab PO PRN (11:27)
--- NOTE | 2019-12-03 11:31 | PCM.SURGPN ---
- General Info Date of Service: 12/03/19 Functional Status: Reports: Pain Controlled - Review of Systems Gastrointestinal: Reports: No Symptoms - Patient Data Vitals - Most Recent: Last Vital Signs Temp 98.2 F 12/03/19 07:00 Pulse 78 12/03/19 07:00 Resp 16 12/03/19 07:00 BP 123/60 12/03/19 07:00 Pulse Ox 97 12/03/19 07:00 Weight - Most Recent: 198 lb 3.2 oz I&O - Last 24 Hours: Intake & Output 12/02/19 12/03/19 12/03/19 22:59 06:59 14:59 Intake Total 1037 3082 Output Total 1000 Balance 1037 2082 Lab Results Last 24 Hrs: Laboratory Results - last 24 hr 12/02/19 Range/Units 21:45 Urine Color YELLOW Urine Appearance CLEAR Urine pH 7.0 (5.0-8.0) Ur Specific Sharon <= 1.005 (1.001-1.035) Urine Protein NEGATIVE (NEGATIVE) mg/dL Urine Glucose (UA) NEGATIVE (NEGATIVE) mg/dL Urine Ketones NEGATIVE (NEGATIVE) mg/dL Urine Occult Blood LARGE H (NEGATIVE) Urine Nitrite NEGATIVE (NEGATIVE) Urine Bilirubin NEGATIVE (NEGATIVE) Urine Urobilinogen 0.2 (<2.0) EU/dL Ur Leukocyte Esterase TRACE H (NEGATIVE) Urine RBC 0-1 (0-2/HPF) Urine WBC 0-3 (0-5/HPF) Ur Epithelial Cells FEW (NONE-FEW) Urine Bacteria FEW (NEGATIVE) Urine Mucus LIGHT (NONE-MOD) Med Orders - Current: Current Medications Acetaminophen (Tylenol) 650 mg PO Q8H PRN PRN Reason: Pain Last Admin: 12/02/19 23:45 Dose: 650 mg Cephalexin (Keflex) 500 mg PO Q6HR ROSALINDA Last Admin: 12/03/19 05:00 Dose: 500 mg Hydromorphone HCl (Dilaudid) 2 mg PO Q8H PRN PRN Reason: Pain Last Admin: 12/03/19 04:57 Dose: 2 mg Lactated Ringer's (Ringers, Lactated) 1,000 mls @ 100 mls/hr IV ASDIRECTED ROSALINDA Last Admin: 12/03/19 01:43 Dose: 100 mls/hr Morphine Sulfate (Morphine) 2 mg IVPUSH Q6HR PRN PRN Reason: Pain Last Admin: 12/03/19 09:08 Dose: 2 mg Discontinued Medications Diazepam (Valium) 2 mg IVPUSH ONETIME ONE Stop: 12/02/19 22:36 Last Admin: 12/03/19 05:23 Dose: Not Given Hydromorphone HCl (Dilaudid) 2 mg PO Q8H PRN PRN Reason: Pain Hydromorphone HCl (Dilaudid) 2 mg PO Q12H PRN PRN Reason: Pain Iopamidol (Isovue Multipack-370 (76%)) 100 ml IVPUSH ONETIME ONE Stop: 12/02/19 00:04 Last Admin: 12/02/19 00:25 Dose: 100 ml Lorazepam (Ativan) Confirm Administered Dose 2 mg .ROUTE .STK-MED ONE Stop: 12/01/19 23:33 Last Admin: 12/02/19 00:10 Dose: Not Given Lorazepam (Ativan) 1 mg IVPUSH ONETIME ONE Stop: 12/01/19 23:36 Last Admin: 12/01/19 23:37 Dose: 1 mg Morphine Sulfate (Morphine) 4 mg IVPUSH ONETIME ONE Stop: 12/02/19 00:43 Last Admin: 12/02/19 01:01 Dose: 4 mg Morphine Sulfate (Morphine) 4 mg IVPUSH ONETIME ONE Stop: 12/02/19 00:43 Last Admin: 12/02/19 01:02 Dose: Not Given Morphine Sulfate (Morphine) 2 mg IVPUSH ONETIME ONE Stop: 12/02/19 02:25 Last Admin: 12/02/19 02:36 Dose: 2 mg - Exam GI/Abdominal Exam: Normal Bowel Sounds, Soft Sepsis Event Note - Evaluation Sepsis Screening Result: No Definite Risk - Focused Exam Vital Signs: Vital Signs Temp Pulse Resp BP Pulse Ox 12/03/19 07:00 98.2 F 78 16 123/60 97 12/03/19 04:00 97.8 F 80 18 117/69 99 12/02/19 23:44 96.8 F L 66 16 112/61 96 Date Exam was Performed: 12/03/19 Time Exam was Performed: 11:26 - Problem List Review Problem List Initiated/Reviewed/Updated: Yes - My Orders Last 24 Hours: Active Orders 24 hr Category Date Time Status Notify Provider Consults [RC] ASDIRECTED Care 12/02/19 16:33 Active Notify Provider Consults [RC] ASDIRECTED Care 12/03/19 11:04 Active Consult to Physician [CONS] Routine Cons 12/02/19 16:31 Active Consult to Physician [CONS] Routine Cons 12/03/19 11:00 Active Soft Diet [DIET] Diet 12/02/19 Dinner Active cephALEXin [Keflex] Med 12/02/19 18:00 Active 500 mg PO Q6HR Medication Orders Acetaminophen (Tylenol) 650 mg PO Q8H PRN PRN Reason: Pain Last Admin: 12/02/19 23:45 Dose: 650 mg Admin: 12/02/19 15:42 Dose: 650 mg Cephalexin (Keflex) 500 mg PO Q6HR ROSALINDA Last Admin: 12/03/19 05:00 Dose: 500 mg Admin: 12/02/19 23:45 Dose: 500 mg Admin: 12/02/19 17:34 Dose: 500 mg Hydromorphone HCl (Dilaudid) 2 mg PO Q8H PRN PRN Reason: Pain Last Admin: 12/03/19 04:57 Dose: 2 mg Admin: 12/02/19 18:37 Dose: 2 mg Admin: 12/02/19 09:28 Dose: 2 mg Lactated Ringer's (Ringers, Lactated) 1,000 mls @ 100 mls/hr IV ASDIRECTED ROSALINDA Last Admin: 12/03/19 01:43 Dose: 100 mls/hr Infusion: 12/03/19 01:34 Dose: 100 mls/hr Admin: 12/02/19 15:34 Dose: 100 mls/hr Infusion: 12/02/19 15:16 Dose: 100 mls/hr Admin: 12/02/19 05:16 Dose: 100 mls/hr Morphine Sulfate (Morphine) 2 mg IVPUSH Q6HR PRN PRN Reason: Pain Last Admin: 12/03/19 09:08 Dose: 2 mg Admin: 12/02/19 22:21 Dose: 2 mg Admin: 12/02/19 13:55 Dose: 2 mg Admin: 12/02/19 05:20 Dose: 2 mg - Assessment Assessment (Free Text/Narrative):: doing well; getting around by self; able to take po diet; have plan for mandibular fx surgeon appointment; overnight, nursing staff noticed depressing affect of pt; pt denied suicideal ideation, "Hell, no. I have 3 beautiful kids" , denied any plan to hurt self or other people; but request discussion with psychiatrist; psych consult placed; will discharge home after psy consult, if psy concur of discharge plan - Plan Plan (Free Text/Narrative):: doing well; getting around by self; able to take po diet; have plan for mandibular fx surgeon appointment; overnight, nursing staff noticed depressing affect of pt; pt denied suicideal ideation, "Hell, no. I have 3 beautiful kids" , denied any plan to hurt self or other people; but request discussion with psychiatrist; psych consult placed
--- NOTE | 2019-12-06 10:54 | PCM.SN ---
- Free Text/Narrative Note: discharge summary dictated; [id number]
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
== END 2019-12-03 14:17 | disposition home or self-care (01) ==
LOC: MW.ED 23:27 → MW.MS 12-02 02:28
PROVIDERS: ADMIT Surgery; ATTEND Surgery
DX: S22.31XA Fracture of one rib, right side, initial encounter for closed fracture (principal); S02.651A Fracture of angle of right mandible, initial encounter for closed fracture; S27.321A Contusion of lung, unilateral, initial encounter; S37.011A Minor contusion of right kidney, initial encounter; V49.9XXA Car occupant (driver) (passenger) injured in unspecified traffic accident, initial encounter; Y92.410 Unspecified street and highway as the place of occurrence of the external cause
CPT/HCPCS: 36415; 70450; 70486; 71045; 71260; 72125; 72170; 74177; 80053; 81001; 83690; 84703; 85025; 86850; 86900; 86901; 93005; 96374; 99285; A9270; J2060; J2270; J7120; Q9967; 72128; 72128-26; 72131; 72131-26

== ENCOUNTER 2020-08-09 13:30 | Emergency (ER) | payer SELFPAY ==
[2020-08-09 14:12] VITALS: BP 117/81; PULSE 101
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
== END 2020-08-09 14:42 | disposition still patient (30) ==
LOC: MW.ED 13:30
DX: O9A.213 Injury, poisoning and certain other consequences of external causes complicating pregnancy, third trimester (principal); S09.90XA Unspecified injury of head, initial encounter; S39.91XA Unspecified injury of abdomen, initial encounter; S00.01XA Abrasion of scalp, initial encounter; S00.81XA Abrasion of other part of head, initial encounter; O99.333 Smoking (tobacco) complicating pregnancy, third trimester; F17.210 Nicotine dependence, cigarettes, uncomplicated; Y04.0XXA Assault by unarmed brawl or fight, initial encounter
CPT/HCPCS: 99283; 99284

== ENCOUNTER 2020-08-14 12:57 | Emergency (ER) | payer SELFPAY ==
[2020-08-14] MEDS ORDERED: Sodium Chloride 0.9% 2.5 ML Syringe FLUSH PRN (13:53)
[2020-08-14] MEDS ORDERED: Sodium Chloride 0.9% 10 ML Syringe FLUSH PRN (13:53)
[2020-08-14] MEDS ORDERED: Lactated Ringers 1,000 ML IV ONE (13:53)
--- NOTE | 2020-08-14 13:55 | EDM.PDOC ---
ED HPI GENERAL MEDICAL PROBLEM - General Chief Complaint: Gastrointestinal Problem Stated Complaint: PAIN HEADACHE VOMITING Time Seen by Provider: 08/14/20 13:50 Source of Information: Reports: Patient, Old Records History Limitations: Reports: No Limitations - History of Present Illness INITIAL COMMENTS - FREE TEXT/NARRATIVE: This is a very pleasant 29-year-old female who is approximately 33 weeks with no pertinent past medical history presenting with complaints of dental pain, lightheadedness, nausea, and vomiting. She reports a 2-day history of dental pain and took 3 to 4 tablets of Tylenol approximately 4 times throughout the night. She is concerned that she may have taken too much Tylenol. She reports 4 episodes of nonbloody emesis and diarrhea today and also complains of some lightheadedness. She denies any chest discomfort or shortness of breath, denies hematemesis or bloody stools. She states that she took about 13 tablets of acetaminophen, unknown strength. If she took extra strength Tylenol, this could potentially be up to 6500 mg of acetaminophen intake. She complains of dental pain to one of the left upper molars for the past 2 days at the site of a fractured tooth. She denies any difficulty breathing, moving her neck, swallowing, or handling secretions. She has not seen a dentist in at least 1 year. ROS: A 10-point review of systems was negative, except as noted in the HPI (or in the ROS section of this note). Past medical history: Reviewed, no additional pertinent history. Surgical history: Reviewed in system, no additional pertinent history. Social history: Reviewed in system, no additional pertinent history. Family history: Reviewed in system, no additional pertinent history. PHYSICAL EXAM Vital signs reviewed. Nursing notes reviewed. Constitutional: Awake, alert, non-distressed. Head: Normocephalic, atraumatic. Eyes: EOMI, conjunctiva normal, no discharge, no scleral icterus. Ears, Nose, Throat: External ears and nose normal, moist oral mucosa. Tenderness at the #14 tooth, where the crown is fractured. There is no adjacent fluctuance, no evidence of any uvular deviation, no pain with tracheal tug. No evidence of periapical abscess. Neck: Supple, full range of motion. Cardiovascular: 2+ radial pulse, capillary refill less than 2 seconds. Pulmonary: normal work of breathing, no accessory muscle use. Abdomen/GI: Gravid, soft, nontender, nondistended, no guarding or rigidity, no masses. Musculoskeletal: No deformities. Integumentary: Appropriate color for ethnicity, warm, dry, no pallor or jaundice, no rash. Neurologic: Alert, answering questions appropriately, normal speech, no facial droop, moving all extremities well. Psychiatric: Appropriate mood and affect, normal thought process. This patient was seen and evaluated during the 2019 SARS-CoV-2 novel coronavirus pandemic period. Community viral transmission is ongoing at time of this encounter and the emergency department is operating under pandemic response procedures. dental Pain Score (Numeric/FACES): 10 - Related Data Allergies Allergy/AdvReac Type Severity Reaction Status Date / Time No Known Allergies Allergy Verified 08/14/20 13:22 Home Meds: Home Meds Ondansetron [Zofran] 4 mg PO Q8H PRN #15 tab 08/14/20 [Rx] Past Medical History - Past Health History Medical/Surgical History: Denies Medical/Surgical History Gastrointestinal History: Reports: None [employer] History: Reports: Psychiatric History: Reports: Anxiety, Bipolar, Depression, Mood Swings, Panic Attack - Infectious Disease History Infectious Disease History: Reports: Chicken Pox - Past Surgical History Female Surgical History: Reports: Section Social & Family History - Family History Family Medical History: No Pertinent Family History Cardiac: Reports: Hypertension Neurological: Reports: Alzheimers Disease Psychiatric: Reports: Anxiety, Depression Endocrine/Metabolic: Reports: Diabetes, type II - Tobacco Use Tobacco Use Status *Q: Current Every Day Tobacco User Years of Tobacco use: 10 Packs/Tins Daily: 0.2 - Caffeine Use Caffeine Use: Reports: Soda - Recreational Drug Use Recreational Drug Use: No ED ROS GENERAL - Review of Systems Review Of Systems: See Below ED EXAM, GENERAL - Physical Exam Exam: See Below ED GENERAL MEDICAL PROCEDURES - Additional/Other Procedure(s) Other (Free Text) Procedure(s): Procedure: Dental block Location: #14 tooth Consent for operation or procedure: Risks and benefits discussed with patient and consent obtained Anesthesia: 3 ml of Bupivicaine Anatomy was identified. Bupivacaine was injected into that region. A short time later adequate analgesia was obtained. Estimated Blood Loss: minimal Complications: The patient tolerated the procedure well without complications. #1 Interpretation EKG Interpretation Comments: 12-Lead ECG Interpretation Acquired: 2:02 PM Rhythm: Sinus rhythm Rate: 71 bpm Darling: Normal Intervals: Normal Ectopy: None RV Strain: No obvious RV strain pattern. ST Segments/T-Waves: T wave inversions in lead III, otherwise no notable changes Acute Ischemic Changes: None apparent Interpretation: No STEMI Course - Vital Signs Text/Narrative:: 29-year-old female presenting with 2 days of dental pain, nausea, vomiting, diarrhea, and lightheadedness with possible Tylenol toxicity. Patient hemodynamically stable, afebrile, well-appearing, looks nontoxic. Differential diagnosis includes but is not limited to: COVID-19 infection, viral gastroenteritis, anemia, volume depletion, arrhythmia, fractured tooth, and many others. 2:18 PM: Ordered oxycodone, Zofran, IV fluids. Labs ordered and sent. We will obtain a Covid test. Twelve-lead EKG looks nonischemic. She does have a fractured tooth and we will give her some oxycodone and discuss a dental block. I did discuss with the [facility] poison control system, we will obtain acetaminophen and salicylate levels along with LFTs and INR, these are pending. We will obtain heart tones. 3:25 PM: heart tones 140 bpm by Doppler auscultation. Patient states she has had a previous ultrasound done by her [employer] that showed an IUP. Labs show mild leukocytosis, normocytic anemia with hemoglobin 11.3, normal platelets. INR is normal. Metabolic panel shows normal electrolytes except for mildly low calcium at 8.4, renal function is normal. Troponin is negative. LFTs are within normal limits. Albumin slightly low at 2.8. Acetaminophen is 25.9, salicylates are 3.1. I am going to recontact [place] poison control system and advised him of the laboratory findings. Poison Control Center recommended rechecking INR, LFTs, and acetaminophen level at roughly 4 PM. I am also going to perform a dental block. 4:48 PM: Repeat acetaminophen level is decreased from 25.9-13.7, repeat INR is essentially unchanged, repeat LFTs show stable bilirubin, essentially unchanged AST, ALT, and total bilirubin. I did recontact the [place] poison control system. They are reassured by her decreasing acetaminophen level and liver function tests and INR. We are waiting on a Covid test to come back. 5:15 PM: At this point there is low suspicion for acetaminophen toxicity. COVID-19 testing is negative. Patient has not had any further vomiting here in the emergency department and responded well to a single dose of Zofran. Her laboratory work-up is reassuring. Her dental pain improved with a dental block and some pain medications. She has a fractured tooth that needs to be extracted by dentist and we discussed this. She is no longer feeling lightheaded. I am going to prescribe some Zofran for nausea and vomiting and she can also take Pepto-Bismol for diarrhea and follow-up with her [employer] or her primary doctor. We also discussed safe dosing of Tylenol, limited to 3 g/day and I recommended trying to abstain for this for the next 24 hours. Plan: Patient is stable to discharge home with outpatient primary care clinic follow-up. Strict emergency department return precautions were provided, patient indicated understanding. All questions were answered prior to departure. Discharged in good condition. Last Recorded V/S: Last Vital Signs Temp 35.9 C L 08/14/20 13:19 Pulse 80 08/14/20 13:19 Resp 18 08/14/20 13:19 BP 132/63 08/14/20 13:19 Pulse Ox 97 08/14/20 13:19 - Orders/Labs/Meds Orders: Active Orders 24 hr Category Date Time Status EKG Documentation Completion [RC] STAT Care 08/14/20 13:53 Active Heart Tones [RC] ASDIRECTED Care 08/14/20 13:54 Active Pulse Oximetry [RC] ASDIRECTED Care 08/14/20 13:53 Active CORONAVIRUS COVID-19 PCR PHL Stat Lab 08/14/20 15:59 Received Sodium Chloride 0.9% [Saline Flush] Med 08/14/20 13:53 Active 10 ml FLUSH ASDIRECTED PRN Sodium Chloride 0.9% [Saline Flush] Med 08/14/20 13:53 Active 2.5 ml FLUSH ASDIRECTED PRN Saline Lock Insert [OM.PC] Stat Oth 08/14/20 13:53 Ordered Medication Orders Sodium Chloride (Saline Flush) 10 ml FLUSH ASDIRECTED PRN PRN Reason: Keep Vein Open Last Admin: 08/14/20 14:05 Dose: 10 ml Documented by: ASHA Sodium Chloride (Saline Flush) 2.5 ml FLUSH ASDIRECTED PRN PRN Reason: Keep Vein Open Last Admin: 08/14/20 14:05 Dose: 2.5 ml Documented by: ASHA Labs: Laboratory Tests 08/14/20 08/14/20 08/14/20 Range/Units 13:58 13:58 13:58 WBC 13.17 H (4.0-11.0) K/uL RBC 3.76 L (4.30-5.90) M/uL Hgb 11.3 L (12.0-16.0) g/dL Hct 33.7 L (36.0-46.0) % MCV 89.6 (80.0-98.0) fL MCH 30.1 (27.0-32.0) pg MCHC 33.5 (31.0-37.0) g/dL RDW Std Deviation 43.8 (28.0-62.0) fl RDW Coeff of Marisela 13 (11.0-15.0) % Plt Count 232 (150-400) K/uL MPV 11.70 (7.40-12.00) fL Neut % (Auto) 70.6 (48.0-80.0) % Lymph % (Auto) 21.9 (16.0-40.0) % Woodruff % (Auto) 6.5 (0.0-15.0) % Eos % (Auto) 0.8 (0.0-7.0) % Baso % (Auto) 0.2 (0.0-1.5) % Neut # (Auto) 9.3 H (1.4-5.7) K/uL Lymph # (Auto) 2.9 H (0.6-2.4) K/uL Woodruff # (Auto) 0.9 H (0.0-0.8) K/uL Eos # (Auto) 0.1 (0.0-0.7) K/uL Baso # (Auto) 0.0 (0.0-0.1) K/uL Nucleated RBC % 0.0 /100WBC Nucleated RBCs # 0 K/uL INR 0.97 Sodium 136 (136-145) mmol/L Potassium 3.8 (3.5-5.1) mmol/L Chloride 105 (98-107) mmol/L Carbon Dioxide 23.2 (21.0-32.0) mmol/L BUN 11 (7.0-18.0) mg/dL Creatinine 0.6 (0.6-1.0) mg/dL Est Cr Clr Drug Dosing 131.85 mL/min Estimated GFR (MDRD) > 60.0 ml/min Glucose 78 (74-106) mg/dL Calcium 8.4 L (8.5-10.1) mg/dL Total Bilirubin 0.2 (0.2-1.0) mg/dL Direct Bilirubin (0.0-0.5) mg/dL Indirect Bilirubin AST 18 (15-37) IU/L ALT 31 (14-63) IU/L Alkaline Phosphatase 85 (46-116) U/L Troponin I < 0.050 (0.000-0.056) ng/mL Total Protein 6.4 (6.4-8.2) g/dL Albumin 2.8 L (3.4-5.0) g/dL Globulin 3.6 (2.6-4.0) g/dL Albumin/Globulin Ratio 0.8 L (0.9-1.6) Salicylates 3.1 (0-20) mg/dL Acetaminophen 25.9 ug/mL SARS-CoV-2 RNA (CODY) (NEGATIVE) 08/14/20 08/14/20 08/14/20 Range/Units 15:59 16:09 16:09 WBC (4.0-11.0) K/uL RBC (4.30-5.90) M/uL Hgb (12.0-16.0) g/dL Hct (36.0-46.0) % MCV (80.0-98.0) fL MCH (27.0-32.0) pg MCHC (31.0-37.0) g/dL RDW Std Deviation (28.0-62.0) fl RDW Coeff of Marisela (11.0-15.0) % Plt Count (150-400) K/uL MPV (7.40-12.00) fL Neut % (Auto) (48.0-80.0) % Lymph % (Auto) (16.0-40.0) % Woodruff % (Auto) (0.0-15.0) % Eos % (Auto) (0.0-7.0) % Baso % (Auto) (0.0-1.5) % Neut # (Auto) (1.4-5.7) K/uL Lymph # (Auto) (0.6-2.4) K/uL Woodruff # (Auto) (0.0-0.8) K/uL Eos # (Auto) (0.0-0.7) K/uL Baso # (Auto) (0.0-0.1) K/uL Nucleated RBC % /100WBC Nucleated RBCs # K/uL INR 0.96 Sodium (136-145) mmol/L Potassium (3.5-5.1) mmol/L Chloride (98-107) mmol/L Carbon Dioxide (21.0-32.0) mmol/L BUN (7.0-18.0) mg/dL Creatinine (0.6-1.0) mg/dL Est Cr Clr Drug Dosing mL/min Estimated GFR (MDRD) ml/min Glucose (74-106) mg/dL Calcium (8.5-10.1) mg/dL Total Bilirubin 0.2 (0.2-1.0) mg/dL Direct Bilirubin 0.10 (0.0-0.5) mg/dL Indirect Bilirubin 0.10 AST 21 (15-37) IU/L ALT 29 (14-63) IU/L Alkaline Phosphatase 89 (46-116) U/L Troponin I (0.000-0.056) ng/mL Total Protein 6.5 (6.4-8.2) g/dL Albumin 2.9 L (3.4-5.0) g/dL Globulin 3.6 (2.6-4.0) g/dL Albumin/Globulin Ratio 0.8 L (0.9-1.6) Salicylates (0-20) mg/dL Acetaminophen 13.7 ug/mL SARS-CoV-2 RNA (CODY) NEGATIVE (NEGATIVE) Meds: Medications Generic Name Dose Route Start Last Admin Trade Name Eduarq PRN Reason Stop Dose Admin Sodium Chloride 10 ml 08/14/20 13:53 08/14/20 14:05 Saline Flush FLUSH 10 ml ASDIRECTED PRN Administration Keep Vein Open Sodium Chloride 2.5 ml 08/14/20 13:53 08/14/20 14:05 Saline Flush FLUSH 2.5 ml ASDIRECTED PRN Administration Keep Vein Open Discontinued Medications Generic Name Dose Route Start Last Admin Trade Name Duarte PRN Reason Stop Dose Admin Bupivacaine HCl 10 ml 08/14/20 15:36 08/14/20 15:43 Sensorcaine-Mpf 0.5% INJECT 08/14/20 15:37 10 ml ONETIME ONE Administration Lactated Ringer's 1,000 mls @ 999 mls/hr 08/14/20 13:53 08/14/20 14:05 Ringers, Lactated IV 08/14/20 14:53 999 mls/hr .BOLUS ONE Administration Ondansetron HCl 4 mg 08/14/20 14:10 08/14/20 14:35 Zofran IVPUSH 08/14/20 14:11 4 mg ONETIME ONE Administration Oxycodone HCl 10 mg 08/14/20 14:10 08/14/20 14:35 Oxycodone PO 08/14/20 14:11 10 mg ONETIME ONE Administration Departure - Departure Time of Disposition: 17:15 Disposition: Home, Self-Care 01 Condition: Good Clinical Impression: Nausea, vomiting, and diarrhea, Lightheadedness Fractured tooth Qualifiers: Encounter type: initial encounter Fracture type: open Qualified Code(s): S02.5XXB - Fracture of tooth (traumatic), initial encounter for open fracture Accidental acetaminophen overdose Qualifiers: Encounter type: initial encounter Qualified Code(s): T39.1X1A - Poisoning by 4- Aminophenol derivatives, accidental (unintentional), initial encounter - Discharge Information *PRESCRIPTION DRUG MONITORING PROGRAM REVIEWED*: Not Applicable *COPY OF PRESCRIPTION DRUG MONITORING REPORT IN PATIENT CONRAD: Not Applicable Instructions: Viral Gastroenteritis, Adult, Djto-rj-Clay, Dental Extraction, Vwoj-jo-Bzyc, Acetaminophen Overdose, Preventing Poisoning, Adult, Tooth Injuries Referrals: [facility] - [facility] [Provider Group] - 1 Week (Follow-up with the family medicine clinic or your [employer] for reevaluation of vomiting and diarrhea if your symptoms do not improve. Follow-up with a dental clinic for removal of your fractured tooth.) Forms: ED Department Discharge Additional Instructions: You were seen in the emergency department for dental pain, lightheadedness, vomiting, diarrhea, and possible Tylenol overdose. You have a fractured tooth that needs to be removed by a dentist, unfortunately we cannot do this in the emergency department. You can take [id number] Tylenol for pain as directed on the package, do not take more than 4000 mg in a 24-hour period as this can cause overdose. At this point you do not have evidence of a serious overdose that would require us to admit you to the hospital and you are medically able to go home tonight. We do recommend that you not take any more acetaminophen for at least 24 hours after your last dose which was at 10:00 this morning. I am going to prescribe Zofran, nausea medication. You can take [id number] Pepto-Bismol for diarrhea and be sure you are drinking plenty of fluids. Warning signs to come back to the ER include: Severe abdominal pain, bloody vomit, bloody bowel movements, fever, chest pain, shortness of breath, facial swelling, difficulty swallowing or speaking due to facial swelling or pain, fever of 100.4 or higher, or any other new or concerning symptoms. Please return the emergency department immediately if your symptoms worsen or if you feel worse. Thank you for choosing the [facility] in [place] for your medical needs today. It was a pleasure caring for you. The following information is given to patients seen in the emergency department who are being discharged. This information is to outline your options for follow-up care. We provide all patients seen in our emergency department with a follow-up referral. The need for follow-up, as well as the timing and circumstances, are variable depending upon the specifics of your emergency department visit. If you don't have a primary care physician on staff, we will provide you with a referral. We always advise you to contact your personal physician following an emergency department visit to inform them of the circumstance of the visit and for follow-up with them and/or the need for any referrals to a consulting specialist. The emergency department will also refer you to a specialist when appropriate. This referral assures that you have the opportunity for follow-up care with a specialist. All of these measure are taken in an effort to provide you with optimal care, which includes your follow-up. Under all circumstances we always encourage you to contact your private physician who remains a resource for coordinating your care. When calling for follow-up care, please make the office aware that this follow-up is from your recent emergency room visit. If for any reason you are refused follow-up, please contact the [facility] Department at and asked to speak to the emergency department charge nurse. If you do not have a primary care physician that is caring for you, you can contact these clinics below to set up an appointment to establish care: [facility] [address] [place] [id number] [facility] [address] [place] [id number] Sepsis Event Note (ED) - Evaluation Sepsis Screening Result: No Definite Risk - Focused Exam Vital Signs: Vital Signs Temp Pulse Resp BP Pulse Ox 08/14/20 13:19 35.9 C L 80 18 132/63 97 - My Orders Last 24 Hours: My Active Orders 08/14/20 13:53 EKG Documentation Completion [RC] STAT Pulse Oximetry [RC] ASDIRECTED Sodium Chloride 0.9% [Saline Flush] 10 ml FLUSH ASDIRECTED PRN Sodium Chloride 0.9% [Saline Flush] 2.5 ml FLUSH ASDIRECTED PRN Saline Lock Insert [OM.PC] Stat 08/14/20 13:54 Heart Tones [RC] ASDIRECTED 08/14/20 15:59 CORONAVIRUS COVID-19 PCR PHL Stat - Assessment/Plan Last 24 Hours: My Active Orders 08/14/20 13:53 EKG Documentation Completion [RC] STAT Pulse Oximetry [RC] ASDIRECTED Sodium Chloride 0.9% [Saline Flush] 10 ml FLUSH ASDIRECTED PRN Sodium Chloride 0.9% [Saline Flush] 2.5 ml FLUSH ASDIRECTED PRN Saline Lock Insert [OM.PC] Stat 08/14/20 13:54 Heart Tones [RC] ASDIRECTED 08/14/20 15:59 CORONAVIRUS COVID-19 PCR PHL Stat
[2020-08-14] MEDS ORDERED: oxyCODONE 5 MG Tab PO ONE (14:10)
[2020-08-14] MEDS ORDERED: Ondansetron 4 MG/2 ML SDV IVPUSH ONE (14:10)
[2020-08-14 14:40] LABS: BLOOD UREA NITROGEN,BUN 11 mg/dL (7.0-18.0); CARBON DIOXIDE,CO2 23.2 mmol/L (21.0-32.0); CHLORIDE,CL 105 mmol/L (98-107); GLUCOSE RANDOM 78 mg/dL (74-106); POTASSIUM,K 3.8 mmol/L (3.5-5.1); SODIUM,NA 136 mmol/L (136-145)
[2020-08-14 14:41] LABS: ACETAMINOPHEN 25.9 ug/mL
[2020-08-14] MEDS ORDERED: Bupivacaine 0.5% 10 ML SDV INJECT ONE (15:36)
[2020-08-14 16:43] LABS: ACETAMINOPHEN 13.7 ug/mL; BILIRUBIN INDIRECT 0.1
[2020-08-14 17:39] VITALS: BP 123/77; PULSE 70
== END 2020-08-14 17:35 | disposition home or self-care (01) ==
LOC: MW.ED 12:57
DX: O9A.213 Injury, poisoning and certain other consequences of external causes complicating pregnancy, third trimester (principal); T39.1X1A Poisoning by 4-Aminophenol derivatives, accidental (unintentional), initial encounter; O99.891 Other specified diseases and conditions complicating pregnancy; R11.2 Nausea with vomiting, unspecified; R19.7 Diarrhea, unspecified; R42 Dizziness and giddiness; O99.333 Smoking (tobacco) complicating pregnancy, third trimester; F17.210 Nicotine dependence, cigarettes, uncomplicated; O99.613 Diseases of the digestive system complicating pregnancy, third trimester; K03.81 Cracked tooth; Z20.828 Contact with and (suspected) exposure to other viral communicable diseases; Z3A.33 33 weeks gestation of pregnancy
CPT/HCPCS: 36415; 64400; 80053; 80076; 80307; 84484; 85025; 85610; 87635; 93005; 96374; 99284; A9270; J2405; J3490; J7120; 93010; 99283; U0002

== ENCOUNTER 2020-09-28 10:21 | Inpatient (IN) | payer MEDICAID, OTHER ==
[2020-09-28] MEDS: Lactated Ringers 1,000 ML IV SCH ×2 (10:55→11:45)
[2020-09-28] MEDS ORDERED: Sodium Chloride 0.9% 2.5 ML Syringe FLUSH PRN (11:30)
[2020-09-28] MEDS ORDERED: Citric Acid/Sodium Citrate Solution 30 ML Cup PO ONE (11:30)
[2020-09-28] MEDS ORDERED: Oxytocin/0.9 % Sodium Chloride 30 UNIT/500 ML BAG IV SCH (11:30)
[2020-09-28] MEDS ORDERED: Sodium Chloride 0.9% 10 ML Syringe FLUSH PRN (11:30)
[2020-09-28] MEDS ORDERED: Sodium Chloride 0.9% 10 ML SDV IV PRN (11:30)
[2020-09-28] MEDS ORDERED: ceFAZolin 2 GM in Premix Bag 1 BAG IV ONE (11:30)
--- NOTE | 2020-09-28 12:09 | PCM.LDHP ---
L&D History of Present Illness - General Date of Service: 09/28/20 Admit Problem/Dx: Patient Status Order with Admit Dx/Problem 09/28/20 11:30 Patient Status [ADT] Routine Admission Diagnosis/Problem Admission Diagnosis/Problem 09/28/20 12:04 presenting to L&D at 39 weeks (HAROLDO: 10/05/20) for repeat section. A+, rubella immune, GBS negative. Positive UDS in early (THC); most recent UDS on 09/25/20 also positive for THC. Otherwise, unremarkable . Source of Information: Patient History Limitations: Reports: No Limitations - Related Data Allergies/Adverse Reactions: Allergies Allergy/AdvReac Type Severity Reaction Status Date / Time No Known Allergies Allergy Verified 09/21/20 12:44 Home Medications: Home Meds Pnv No.95/Ferrous Fum/Folic AC [ Vitamin Tablet] 1 tab PO DAILY 09/21/20 [History] Past Medical History - Past Health History Medical/Surgical History: Denies Medical/Surgical History HEENT History: Reports: None Cardiovascular History: Reports: None Respiratory History: Reports: None Gastrointestinal History: Reports: None Genitourinary History: Reports: None [employer]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: Musculoskeletal History: Reports: None Neurological History: Reports: Concussion, Migraines Psychiatric History: Reports: Anxiety, Bipolar, Depression, Mood Swings, Panic Attack Endocrine/Metabolic History: Reports: None Hematologic History: Reports: None Immunologic History: Reports: None Oncologic (Cancer) History: Reports: None Dermatologic History: Reports: None - Infectious Disease History Infectious Disease History: Reports: Chicken Pox - Past Surgical History HEENT Surgical History: Reports: None GI Surgical History: Reports: None Female Surgical History: Reports: Section Social & Family History - Family History Family Medical History: No Pertinent Family History Cardiac: Reports: Hypertension OBGYN: Reports: Neurological: Reports: Alzheimers Disease Psychiatric: Reports: Anxiety, Depression Endocrine/Metabolic: Reports: Diabetes, type II - Tobacco Use Tobacco Use Status *Q: Current Every Day Tobacco User Years of Tobacco use: 15 Packs/Tins Daily: 0.1 Second Hand Smoke Exposure: Yes - Caffeine Use Caffeine Use: Reports: None - Recreational Drug Use Recreational Drug Type: Reports: Marijuana/Hashish H&P Review of Systems - Review of Systems: Review Of Systems: See Below General: Reports: No Symptoms HEENT: Reports: No Symptoms Pulmonary: Reports: No Symptoms Cardiovascular: Reports: No Symptoms Gastrointestinal: Reports: No Symptoms Genitourinary: Reports: No Symptoms Musculoskeletal: Reports: No Symptoms Skin: Reports: No Symptoms Psychiatric: Reports: No Symptoms Neurological: Reports: No Symptoms Hematologic/Lymphatic: Reports: No Symptoms Immunologic: Reports: No Symptoms L&D Exam - Exam Exam: See Below - Vital Signs Weight: 189 lb - OB Specific Movement: Active Heart Tones: Present Heart Rate (FHR) Variability: Moderate (6-25 bmp) - Exam General: Alert, Oriented, Cooperative Lungs: Normal Respiratory Effort Cardiovascular: Regular Rate, Regular Rhythm GI/Abdominal Exam: Soft, Non-Tender Rectal Exam: Deferred Genitourinary: Deferred Back Exam: Normal Inspection, Full Range of Motion Extremities: Normal Inspection, Normal Range of Motion, Non-Tender, Normal Capillary Refill Skin: Warm, Dry, Intact Psychiatric: Alert, Normal Affect, Normal Mood - Patient Data Lab Results Last 24 hrs: Laboratory Results - last 24 hr 09/28/20 Range/Units 10:53 WBC 14.69 H (4.0-11.0) K/uL RBC 3.77 L (4.30-5.90) M/uL Hgb 11.1 L (12.0-16.0) g/dL Hct 34.1 L (36.0-46.0) % MCV 90.5 (80.0-98.0) fL MCH 29.4 (27.0-32.0) pg MCHC 32.6 (31.0-37.0) g/dL RDW Std Deviation 46.7 (28.0-62.0) fl RDW Coeff of Marisela 14 (11.0-15.0) % Plt Count 275 (150-400) K/uL MPV 11.50 (7.40-12.00) fL Nucleated RBC % 0.0 /100WBC Nucleated RBCs # 0 K/uL Result Diagrams: 09/28/20 10:53 - Problem List (1) Supervision of normal IUP (intrauterine ) in multigravida SNOMED Code(s): 012366608, 237893026, 892236410 ICD Code: Z34.80 - ENCOUNTER FOR SUPRVSN OF NORMAL , UNSP TRIMESTER Status: Acute Priority: High Current Visit: Yes Qualifiers: Trimester: third trimester Qualified Code(s): Z34.83 - Encounter for supervision of other normal , third trimester Problem List Initiated/Reviewed/Updated: Yes Orders Last 24hrs: Active Orders 24 hr Category Date Time Status Patient Status [ADT] Routine ADT 09/28/20 11:30 Active Non Stress Test [RC] PER UNIT ROUTINE Care 09/28/20 11:30 Active Notify Provider Vital Signs [RC] PRN Care 09/28/20 11:32 Active Procedure Site Prep Instruct [RC] ASDIRECTED Care 09/28/20 11:30 Active Up ad Jenae [RC] ASDIRECTED Care 09/28/20 11:30 Active Verify Patient Consent Obtain [RC] ASDIRECTED Care 09/28/20 11:30 Active Vital Signs [RC] PER UNIT ROUTINE Care 09/28/20 11:30 Active RPR (SYPHILIS SERO) W/ RFLX [REF] Routine Lab 09/28/20 10:53 Received TYPE AND SCREEN [BBK] Routine Lab 09/28/20 10:53 Received Lactated Ringers [Ringers, Lactated] 1,000 ml Med 09/28/20 11:30 Active IV BOLUS Oxytocin/0.9 % Sodium Chloride [Oxytocin 30 Unit/500 ML Med 09/28/20 11:30 Active -NS] 30 unit in 500 ml IV TITRATE Sodium Chloride 0.9% [Normal Saline] Med 09/28/20 11:30 Active 10 ml IV ASDIRECTED PRN Sodium Chloride 0.9% [Saline Flush] Med 09/28/20 11:30 Active 10 ml FLUSH ASDIRECTED PRN Sodium Chloride 0.9% [Saline Flush] Med 09/28/20 11:30 Active 2.5 ml FLUSH ASDIRECTED PRN Peripheral IV Insertion Adult [OM.PC] Routine Oth 09/28/20 11:30 Ordered Schedule Procedure [COMM] Per Unit Routine Oth 09/28/20 11:30 Ordered Resuscitation Status Routine Resus Stat 09/28/20 11:30 Ordered Medication Orders Oxytocin/Sodium Chloride (Oxytocin 30 Unit/500 Ml-Ns) 30 unit in 500 mls @ 250 mls/hr IV TITRATE ROSALINDA Lactated Ringer's (Ringers, Lactated) 1,000 mls @ 500 mls/hr IV BOLUS ROSALINDA Last Admin: 09/28/20 11:45 Dose: 999 mls/hr Documented by: Infusion: 09/28/20 11:45 Dose: 999 mls/hr Documented by: Admin: 09/28/20 10:55 Dose: 999 mls/hr Documented by: CAROLINE Sodium Chloride (Saline Flush) 10 ml FLUSH ASDIRECTED PRN PRN Reason: Keep Vein Open Sodium Chloride (Saline Flush) 2.5 ml FLUSH ASDIRECTED PRN PRN Reason: Keep Vein Open Sodium Chloride (Normal Saline) 10 ml IV ASDIRECTED PRN PRN Reason: IV Use Assessment/Plan Comment:: Admit A: presenting to L&D at 39 weeks (HAROLDO: 10/05/20) for repeat section. A+, rubella immune, GBS negative. Positive UDS in early (THC); most recent UDS on 09/25/20 also positive for THC. Otherwise, unremarkable . P: Plan for repeat delivery and routine plan of care.
[2020-09-28] MEDS ORDERED: Octyl 2-Cyanoacrylate 1 Tube ONE (12:11)
[2020-09-28] MEDS ORDERED: Morphine PF 10 MG/10 ML SDV ONE (12:13)
[2020-09-28] MEDS ORDERED: Oxytocin 10 Units/1 ML SDV IM PRN (12:38)
[2020-09-28] MEDS ORDERED: Lanolin 100% Cream 7 GM Tube TOP PRN (12:38)
[2020-09-28] MEDS ORDERED: Acetaminophen/oxyCODONE 325-5 MG Tab PO PRN (12:38)
[2020-09-28] MEDS ORDERED: Ondansetron 4 MG/2 ML SDV IVPUSH PRN (12:38)
[2020-09-28] MEDS ORDERED: Bisacodyl 10 MG Supp RECTAL PRN (12:38)
[2020-09-28] MEDS ORDERED: Misoprostol 200 MCG Tab RECTAL PRN (12:38)
[2020-09-28] MEDS ORDERED: Methylergonovine 0.2 MG/1 ML Amp IM PRN (12:38)
[2020-09-28] MEDS ORDERED: Tranexamic Acid 1,000 MG in Sodium Chloride 0.9% 100 ML IV PRN (12:38)
[2020-09-28] MEDS ORDERED: diphenhydrAMINE 50 MG/ML SDV IVPUSH PRN (12:38)
[2020-09-28] MEDS ORDERED: Lactated Ringers 1,000 ML IV SCH (12:45)
[2020-09-28] MEDS ORDERED: Dexamethasone 4 MG/ML 5 ML MDV ONE ×2 (12:56→13:07)
[2020-09-28] MEDS ORDERED: ePHEDrine 50 MG/ML SDV ONE (12:59)
[2020-09-28] MEDS ORDERED: Oxytocin 10 Units/1 ML SDV ONE ×2 (13:06→13:20)
[2020-09-28] MEDS ORDERED: Ondansetron 4 MG/2 ML SDV ONE ×2 (13:20)
[2020-09-28] MEDS ORDERED: Propofol 200 MG/20 ML SDV ONE (13:24)
[2020-09-28] MEDS ORDERED: Ketorolac 30 MG/ML SDV ONE (13:49)
[2020-09-28] MEDS: Ketorolac 30 MG/ML SDV IVPUSH SCH ×2 (13:50→20:12)
[2020-09-28] MEDS ORDERED: Naloxone 0.4 MG/ML Syringe IVPUSH ONE (17:57)
[2020-09-28] MEDS: Nalbuphine 10 MG/1 ML Vial IVPUSH PRN (18:20)
--- NOTE | 2020-09-28 18:22 | PCM.DEL ---
L & D Note - General Info Date of Service: 09/28/20 Mother's Due Date: 10/05/20 - Delivery Note Infant Delivery Method: Repeat Presentation: Vertex Nuchal Cord: None Anesthesia Type: Spinal Placenta: Intact Cord: 3 Vessels Estimated Blood Loss: 500 [place]: Stimulated Score 1 min: 8 Score 5 min: 9 Delivery Comments (Free Text/Narrative):: presenting to L&D at 39 weeks (HAROLDO: 10/05/20) for repeat section. A+, rubella immune, GBS negative. Positive UDS in early (THC); most recent UDS on 09/25/20 also positive for THC. S/P uncomplicated RLTCS. Delivery detail: Male infant BW: [id number] Apgars 8/9 EBL 500mLs - General Info Date of Service: 09/28/20 Admission Dx/Problem (Free Text): Patient Status Order with Admit Dx/Problem 09/28/20 11:30 Patient Status [ADT] Routine Admission Diagnosis/Problem Admission Diagnosis/Problem 09/28/20 12:04 presenting to L&D at 39 weeks (HAROLDO: 10/05/20) for repeat section. A+, rubella immune, GBS negative. Positive UDS in early (THC); most recent UDS on 09/25/20 also positive for THC. Otherwise, unremarkable . Subjective Update: Mom and baby doing well. Pain well-controlled Functional Status: Reports: Pain Controlled - Review of Systems General: Reports: No Symptoms HEENT: Reports: No Symptoms Pulmonary: Reports: No Symptoms Cardiovascular: Reports: No Symptoms Gastrointestinal: Reports: No Symptoms Genitourinary: Reports: No Symptoms Musculoskeletal: Reports: No Symptoms Skin: Reports: No Symptoms Neurological: Reports: No Symptoms Psychiatric: Reports: No Symptoms - Patient Data Vitals - Most Recent: Last Vital Signs Temp Pulse 66 09/28/20 15:15 Resp 16 09/28/20 15:15 BP 122/74 09/28/20 15:15 Pulse Ox 100 09/28/20 15:15 Weight - Most Recent: 85.729 kg Lab Results Last 24 Hours: Laboratory Results - last 24 hr 09/28/20 09/28/20 Range/Units 10:53 10:53 WBC 14.69 H (4.0-11.0) K/uL RBC 3.77 L (4.30-5.90) M/uL Hgb 11.1 L (12.0-16.0) g/dL Hct 34.1 L (36.0-46.0) % MCV 90.5 (80.0-98.0) fL MCH 29.4 (27.0-32.0) pg MCHC 32.6 (31.0-37.0) g/dL RDW Std Deviation 46.7 (28.0-62.0) fl RDW Coeff of Marisela 14 (11.0-15.0) % Plt Count 275 (150-400) K/uL MPV 11.50 (7.40-12.00) fL Nucleated RBC % 0.0 /100WBC Nucleated RBCs # 0 K/uL Blood Type A POSITIVE Antibody Screen NEGATIVE Med Orders - Current: Current Medications Bisacodyl (Dulcolax) 10 mg RECTAL ONETIME PRN PRN Reason: Constipation Diphenhydramine HCl (Benadryl) 25 mg IVPUSH Q6H PRN PRN Reason: Itching or Nausea Last Admin: 09/28/20 14:26 Dose: 25 mg Documented by: Docusate Sodium (Colace) 100 mg PO BID [facility] Emollient Ointment (Lansinoh Hpa) 0 gm TOP ASDIRECTED PRN PRN Reason: Sore Nipples Oxytocin/Sodium Chloride (Oxytocin 30 Unit/500 Ml-Ns) 30 unit in 500 mls @ 250 mls/hr IV TITRATE [facility] Lactated Ringer's (Ringers, Lactated) 1,000 mls @ 500 mls/hr IV BOLUS [facility] Last Admin: 09/28/20 11:45 Dose: 999 mls/hr Documented by: Lactated Ringer's (Ringers, Lactated) 1,000 mls @ 125 mls/hr IV ASDIRECTED [facility] Tranexamic Acid 1,000 mg/ (Sodium Chloride) 110 mls @ 660 mls/hr IV ONETIME PRN PRN Reason: Bleeding Ibuprofen (Motrin) 800 mg PO Q8H PRN PRN Reason: mild pain or fever Ketorolac Tromethamine (Toradol) 30 mg IVPUSH Q6H [facility] Stop: 09/29/20 12:46 Methylergonovine Maleate (Methergine) 0.2 mg IM ONETIME PRN PRN Reason: Excessive Vaginal Bleeding Misoprostol (Cytotec) 1,000 mcg RECTAL ONETIME PRN PRN Reason: excessive bleeding Nalbuphine HCl (Nubain) 5 mg IVPUSH Q6H PRN PRN Reason: Itching Ondansetron HCl (Zofran) 4 mg IVPUSH Q4H PRN PRN Reason: Nausea/Vomiting Oxycodone/Acetaminophen (Percocet 325-5 Mg) 1 tab PO Q4H PRN PRN Reason: Pain (moderate 4-6) Oxycodone/Acetaminophen (Percocet 325-5 Mg) 2 tab PO Q4H PRN PRN Reason: Pain (moderate 4-6) Oxytocin (Pitocin) 10 unit IM ASDIRECTED PRN PRN Reason: Excessive Vaginal Bleeding Sodium Chloride (Saline Flush) 10 ml FLUSH ASDIRECTED PRN PRN Reason: Keep Vein Open Sodium Chloride (Saline Flush) 2.5 ml FLUSH ASDIRECTED PRN PRN Reason: Keep Vein Open Sodium Chloride (Normal Saline) 10 ml IV ASDIRECTED PRN PRN Reason: IV Use Discontinued Medications Citric Acid/Sodium Citrate (Bicitra Solution) 30 ml PO ONETIME ONE Stop: 09/28/20 11:31 Dexamethasone (Dexamethasone) Confirm Administered Dose 20 mg .ROUTE .STK-MED ONE Stop: 09/28/20 12:57 Dexamethasone (Dexamethasone) Confirm Administered Dose 20 mg .ROUTE .STK-MED ONE Stop: 09/28/20 13:08 Ephedrine Sulfate (Ephedrine Sulfate) Confirm Administered Dose 50 mg .ROUTE .STK-MED ONE Stop: 09/28/20 13:00 Cefazolin Sodium/Dextrose 2 gm (/ Premix) 50 mls @ 100 mls/hr IV ONETIME ONE Stop: 09/28/20 11:59 Cefazolin Sodium/Dextrose (Ancef) Confirm Administered Dose 100 mls @ as directed .ROUTE .STK-MED ONE Stop: 09/28/20 12:14 Ketorolac Tromethamine (Toradol) Confirm Administered Dose 30 mg .ROUTE .STK-MED ONE Stop: 09/28/20 13:50 Morphine Sulfate (Duramorph Pf) Confirm Administered Dose 10 mg .ROUTE .STK-MED ONE Stop: 09/28/20 12:14 Naloxone HCl (Narcan) 0.1 mg IVPUSH ONETIME ONE Stop: 09/28/20 17:58 Octyl Cyanoacrylate (Dermabond Advance) Confirm Administered Dose 1 applic .ROUTE .STK-MED ONE Stop: 09/28/20 12:12 Ondansetron HCl (Zofran) Confirm Administered Dose 4 mg .ROUTE .STK-MED ONE Stop: 09/28/20 13:21 Ondansetron HCl (Zofran) Confirm Administered Dose 4 mg .ROUTE .STK-MED ONE Stop: 09/28/20 13:21 Oxytocin (Pitocin) Confirm Administered Dose 30 unit .ROUTE .STK-MED ONE Stop: 09/28/20 13:07 Oxytocin (Pitocin) Confirm Administered Dose 10 unit .ROUTE .STK-MED ONE Stop: 09/28/20 13:21 Propofol (Diprivan 20 Ml) Confirm Administered Dose 200 mg .ROUTE .STK-MED ONE Stop: 09/28/20 13:25 - Exam General: Alert, Oriented Neck: Supple Lungs: Normal Respiratory Effort Cardiovascular: Regular Rate Extremities: Normal Inspection Psy/Mental Status: Alert, Normal Affect, Normal Mood - Problem List & Annotations (1) S/P repeat low transverse SNOMED Code(s): 440895537, 94693846, 500081547, 831337147, 745939038 Code(s): Z98.891 - HISTORY OF UTERINE SCAR FROM PREVIOUS SURGERY Status: Acute Current Visit: Yes (2) Term delivered SNOMED Code(s): 74810133, 300370313 Code(s): O80 - ENCOUNTER FOR FULL-TERM UNCOMPLICATED DELIVERY Status: Acute Current Visit: Yes - Problem List Review Problem List Initiated/Reviewed/Updated: Yes - Plan Plan:: G6 now P4 S/P uncomplicated RLTCS at 39 weeks (HAROLDO: 10/05/20). A+, rubella immune, GBS negative. Positive UDS in early (THC); most recent UDS on 09/25/20 also positive for THC. Mom and baby doing well. P: Routine plan of care.
[2020-09-28] MEDS ORDERED: Naloxone 0.4 MG/ML Syringe IVPUSH PRN (19:25)
[2020-09-28] MEDS: Docusate Sodium 100 MG Cap PO SCH (20:16)
[2020-09-29] MEDS: Ketorolac 30 MG/ML SDV IVPUSH SCH ×3 (01:58→13:00)
[2020-09-29] MEDS: Nalbuphine 10 MG/1 ML Vial IVPUSH PRN (02:05)
--- NOTE | 2020-09-29 08:20 | PCM.PNPP ---
- General Info Date of Service: 09/29/20 Admission Dx/Problem (Free Text): Patient Status Order with Admit Dx/Problem 09/28/20 11:30 Patient Status [ADT] Routine Admission Diagnosis/Problem Admission Diagnosis/Problem 09/28/20 12:04 presenting to L&D at 39 weeks (HAROLDO: 10/05/20) for repeat section. A+, rubella immune, GBS negative. Positive UDS in early (THC); most recent UDS on 09/25/20 also positive for THC. Otherwise, unremarkable . Subjective Update: Bottle feeding and bonding well with baby. Small lochia rubra. No concerns/questions at this time. Reports feeling "pretty good" and desires shower this AM. Functional Status: Reports: Pain Controlled, Tolerating Diet, Ambulating - Review of Systems General: Reports: No Symptoms HEENT: Reports: No Symptoms Pulmonary: Reports: No Symptoms Cardiovascular: Reports: No Symptoms Gastrointestinal: Reports: No Symptoms Genitourinary: Reports: No Symptoms Musculoskeletal: Reports: No Symptoms Skin: Reports: No Symptoms Neurological: Reports: No Symptoms Psychiatric: Reports: No Symptoms - General Info Date of Service: 09/29/20 - Patient Data Vital Signs - Most Recent: Last Vital Signs Temp 97.2 F 09/29/20 04:28 Pulse 82 09/29/20 04:28 Resp 19 09/29/20 07:00 BP 128/63 09/29/20 04:28 Pulse Ox 95 09/29/20 07:00 Weight - Most Recent: 189 lb I&O - Last 24 Hours: Intake & Output 09/28/20 09/29/20 09/29/20 22:59 06:59 14:59 Intake Total 2000 Output Total 400 1600 Balance -400 400 Lab Results - Last 24 Hours: Laboratory Results - last 24 hr 09/28/20 09/28/20 09/29/20 Range/Units 10:53 10:53 05:02 WBC 14.69 H (4.0-11.0) K/uL RBC 3.77 L (4.30-5.90) M/uL Hgb 11.1 L 10.3 L (12.0-16.0) g/dL Hct 34.1 L 32.1 L (36.0-46.0) % MCV 90.5 (80.0-98.0) fL MCH 29.4 (27.0-32.0) pg MCHC 32.6 (31.0-37.0) g/dL RDW Std Deviation 46.7 (28.0-62.0) fl RDW Coeff of Marisela 14 (11.0-15.0) % Plt Count 275 (150-400) K/uL MPV 11.50 (7.40-12.00) fL Nucleated RBC % 0.0 /100WBC Nucleated RBCs # 0 K/uL Blood Type A POSITIVE Antibody Screen NEGATIVE Med Orders - Current: Current Medications Bisacodyl (Dulcolax) 10 mg RECTAL ONETIME PRN PRN Reason: Constipation Diphenhydramine HCl (Benadryl) 25 mg IVPUSH Q6H PRN PRN Reason: Itching or Nausea Last Admin: 09/28/20 14:26 Dose: 25 mg Documented by: Docusate Sodium (Colace) 100 mg PO BID [facility] Last Admin: 09/28/20 20:16 Dose: 100 mg Documented by: Emollient Ointment (Lansinoh Hpa) 0 gm TOP ASDIRECTED PRN PRN Reason: Sore Nipples Oxytocin/Sodium Chloride (Oxytocin 30 Unit/500 Ml-Ns) 30 unit in 500 mls @ 250 mls/hr IV TITRATE [facility] Lactated Ringer's (Ringers, Lactated) 1,000 mls @ 500 mls/hr IV BOLUS [facility] Last Admin: 09/28/20 11:45 Dose: 999 mls/hr Documented by: Lactated Ringer's (Ringers, Lactated) 1,000 mls @ 125 mls/hr IV ASDIRECTED [facility] Last Admin: 09/28/20 17:00 Dose: 125 mls/hr Documented by: Tranexamic Acid 1,000 mg/ (Sodium Chloride) 110 mls @ 660 mls/hr IV ONETIME PRN PRN Reason: Bleeding Ibuprofen (Motrin) 800 mg PO Q8H PRN PRN Reason: mild pain or fever Ketorolac Tromethamine (Toradol) 30 mg IVPUSH Q6H [facility] Stop: 09/29/20 12:46 Last Admin: 09/29/20 07:56 Dose: 30 mg Documented by: Methylergonovine Maleate (Methergine) 0.2 mg IM ONETIME PRN PRN Reason: Excessive Vaginal Bleeding Misoprostol (Cytotec) 1,000 mcg RECTAL ONETIME PRN PRN Reason: excessive bleeding Nalbuphine HCl (Nubain) 5 mg IVPUSH Q6H PRN PRN Reason: Itching Last Admin: 09/29/20 02:05 Dose: 5 mg Documented by: Naloxone HCl (Narcan) 0.1 mg IVPUSH ONETIME PRN PRN Reason: Respiratory Depression Ondansetron HCl (Zofran) 4 mg IVPUSH Q4H PRN PRN Reason: Nausea/Vomiting Oxycodone/Acetaminophen (Percocet 325-5 Mg) 1 tab PO Q4H PRN PRN Reason: Pain (moderate 4-6) Oxycodone/Acetaminophen (Percocet 325-5 Mg) 2 tab PO Q4H PRN PRN Reason: Pain (moderate 4-6) Oxytocin (Pitocin) 10 unit IM ASDIRECTED PRN PRN Reason: Excessive Vaginal Bleeding Sodium Chloride (Saline Flush) 10 ml FLUSH ASDIRECTED PRN PRN Reason: Keep Vein Open Sodium Chloride (Saline Flush) 2.5 ml FLUSH ASDIRECTED PRN PRN Reason: Keep Vein Open Sodium Chloride (Normal Saline) 10 ml IV ASDIRECTED PRN PRN Reason: IV Use Discontinued Medications Citric Acid/Sodium Citrate (Bicitra Solution) 30 ml PO ONETIME ONE Stop: 09/28/20 11:31 Dexamethasone (Dexamethasone) Confirm Administered Dose 20 mg .ROUTE .STK-MED ONE Stop: 09/28/20 12:57 Dexamethasone (Dexamethasone) Confirm Administered Dose 20 mg .ROUTE .STK-MED ONE Stop: 09/28/20 13:08 Ephedrine Sulfate (Ephedrine Sulfate) Confirm Administered Dose 50 mg .ROUTE .STK-MED ONE Stop: 09/28/20 13:00 Cefazolin Sodium/Dextrose 2 gm (/ Premix) 50 mls @ 100 mls/hr IV ONETIME ONE Stop: 09/28/20 11:59 Cefazolin Sodium/Dextrose (Ancef) Confirm Administered Dose 100 mls @ as directed .ROUTE .STK-MED ONE Stop: 09/28/20 12:14 Ketorolac Tromethamine (Toradol) Confirm Administered Dose 30 mg .ROUTE .STK-MED ONE Stop: 09/28/20 13:50 Morphine Sulfate (Duramorph Pf) Confirm Administered Dose 10 mg .ROUTE .STK-MED ONE Stop: 09/28/20 12:14 Octyl Cyanoacrylate (Dermabond Advance) Confirm Administered Dose 1 applic .ROUTE .STK-MED ONE Stop: 09/28/20 12:12 Ondansetron HCl (Zofran) Confirm Administered Dose 4 mg .ROUTE .STK-MED ONE Stop: 09/28/20 13:21 Ondansetron HCl (Zofran) Confirm Administered Dose 4 mg .ROUTE .STK-MED ONE Stop: 09/28/20 13:21 Oxytocin (Pitocin) Confirm Administered Dose 30 unit .ROUTE .STK-MED ONE Stop: 09/28/20 13:07 Oxytocin (Pitocin) Confirm Administered Dose 10 unit .ROUTE .STK-MED ONE Stop: 09/28/20 13:21 Propofol (Diprivan 20 Ml) Confirm Administered Dose 200 mg .ROUTE .STK-MED ONE Stop: 09/28/20 13:25 - Infant Interaction Infant Disposition, : [place] in Room with Family Interaction: Holding Infant Feeding: Bottle Fed Infant Support Person: Mother - Recovery Exam Fundal Tone: Firm Fundal Level: At Umbilicus Fundal Placement: Midline Lochia Amount: Scant, Small Lochia Color: Rubra/Red Bladder Status: Indwelling Catheter in Place Urinary Elimination: Indwelling Catheter - Exam General: Alert, Oriented, Cooperative, No Acute Distress Lungs: Normal Respiratory Effort Cardiovascular: Regular Rate, Regular Rhythm GI/Abdominal Exam: Soft, Non-Tender Extremities: Normal Inspection, Normal Range of Motion, Normal Capillary Refill Skin: Warm, Dry, Intact Wound/Incisions: Dressing Dry and Intact Neurological: No New Focal Deficit, Normal Speech, Normal Tone, Sensation Intact Psy/Mental Status: Alert, Normal Affect, Normal Mood - Problem List & Annotations (1) Supervision of normal IUP (intrauterine ) in multigravida SNOMED Code(s): 742172111, 364967688, 964683297 Code(s): Z34.80 - ENCOUNTER FOR SUPRVSN OF NORMAL , UNSP TRIMESTER Status: Acute Priority: High Current Visit: Yes Qualifiers: Trimester: third trimester Qualified Code(s): Z34.83 - Encounter for supervision of other normal , third trimester (2) S/P repeat low transverse SNOMED Code(s): 244530548, 91819819, 498742035, 473360588, 191096393 Code(s): Z98.891 - HISTORY OF UTERINE SCAR FROM PREVIOUS SURGERY Status: Acute Priority: High Current Visit: Yes - Problem List Review Problem List Initiated/Reviewed/Updated: Yes - Plan Plan:: G6 now P4 S/P uncomplicated RLTCS at 39 weeks (HAROLDO: 10/05/20). A+, rubella immune, GBS negative. Positive UDS in early (THC); most recent UDS on 09/25/20 also positive for THC. Mom and baby doing well. P: Routine plan of care. PP Day 1 A: Bottle feeding infant; bonding well with baby. Ambulating and tolerating diet. No concerns/questions at this time. P: Routine plan of care; Dr. Rose updated.
--- NOTE | 2020-09-29 09:26 | PCM.SURGPN ---
- General Info Date of Service: 09/29/20 POD#: 1 Functional Status: Reports: Pain Controlled - Review of Systems General: Reports: No Symptoms HEENT: Reports: No Symptoms Pulmonary: Reports: No Symptoms Cardiovascular: Reports: No Symptoms Gastrointestinal: Reports: No Symptoms Genitourinary: Reports: No Symptoms Musculoskeletal: Reports: No Symptoms Skin: Reports: No Symptoms Neurological: Reports: No Symptoms Psychiatric: Reports: No Symptoms - Patient Data Vitals - Most Recent: Last Vital Signs Temp 36.6 C 09/29/20 08:00 Pulse 92 09/29/20 09:00 Resp 15 09/29/20 09:00 BP 121/61 09/29/20 08:00 Pulse Ox 97 09/29/20 09:00 Weight - Most Recent: 85.729 kg I&O - Last 24 Hours: Intake & Output 09/28/20 09/29/20 09/29/20 22:59 06:59 14:59 Intake Total 2000 Output Total 400 1600 Balance -400 400 Lab Results Last 24 Hrs: Laboratory Results - last 24 hr 09/28/20 09/28/20 09/29/20 Range/Units 10:53 10:53 05:02 WBC 14.69 H (4.0-11.0) K/uL RBC 3.77 L (4.30-5.90) M/uL Hgb 11.1 L 10.3 L (12.0-16.0) g/dL Hct 34.1 L 32.1 L (36.0-46.0) % MCV 90.5 (80.0-98.0) fL MCH 29.4 (27.0-32.0) pg MCHC 32.6 (31.0-37.0) g/dL RDW Std Deviation 46.7 (28.0-62.0) fl RDW Coeff of Marisela 14 (11.0-15.0) % Plt Count 275 (150-400) K/uL MPV 11.50 (7.40-12.00) fL Nucleated RBC % 0.0 /100WBC Nucleated RBCs # 0 K/uL Blood Type A POSITIVE Antibody Screen NEGATIVE Med Orders - Current: Current Medications Bisacodyl (Dulcolax) 10 mg RECTAL ONETIME PRN PRN Reason: Constipation Diphenhydramine HCl (Benadryl) 25 mg IVPUSH Q6H PRN PRN Reason: Itching or Nausea Last Admin: 09/28/20 14:26 Dose: 25 mg Documented by: Docusate Sodium (Colace) 100 mg PO BID [facility] Last Admin: 09/28/20 20:16 Dose: 100 mg Documented by: Emollient Ointment (Lansinoh Hpa) 0 gm TOP ASDIRECTED PRN PRN Reason: Sore Nipples Oxytocin/Sodium Chloride (Oxytocin 30 Unit/500 Ml-Ns) 30 unit in 500 mls @ 250 mls/hr IV TITRATE [facility] Lactated Ringer's (Ringers, Lactated) 1,000 mls @ 500 mls/hr IV BOLUS [facility] Last Admin: 09/28/20 11:45 Dose: 999 mls/hr Documented by: Lactated Ringer's (Ringers, Lactated) 1,000 mls @ 125 mls/hr IV ASDIRECTED [facility] Last Admin: 09/28/20 17:00 Dose: 125 mls/hr Documented by: Tranexamic Acid 1,000 mg/ (Sodium Chloride) 110 mls @ 660 mls/hr IV ONETIME PRN PRN Reason: Bleeding Ibuprofen (Motrin) 800 mg PO Q8H PRN PRN Reason: mild pain or fever Ketorolac Tromethamine (Toradol) 30 mg IVPUSH Q6H [facility] Stop: 09/29/20 12:46 Last Admin: 09/29/20 07:56 Dose: 30 mg Documented by: Methylergonovine Maleate (Methergine) 0.2 mg IM ONETIME PRN PRN Reason: Excessive Vaginal Bleeding Misoprostol (Cytotec) 1,000 mcg RECTAL ONETIME PRN PRN Reason: excessive bleeding Nalbuphine HCl (Nubain) 5 mg IVPUSH Q6H PRN PRN Reason: Itching Last Admin: 09/29/20 02:05 Dose: 5 mg Documented by: Naloxone HCl (Narcan) 0.1 mg IVPUSH ONETIME PRN PRN Reason: Respiratory Depression Ondansetron HCl (Zofran) 4 mg IVPUSH Q4H PRN PRN Reason: Nausea/Vomiting Oxycodone/Acetaminophen (Percocet 325-5 Mg) 1 tab PO Q4H PRN PRN Reason: Pain (moderate 4-6) Oxycodone/Acetaminophen (Percocet 325-5 Mg) 2 tab PO Q4H PRN PRN Reason: Pain (moderate 4-6) Oxytocin (Pitocin) 10 unit IM ASDIRECTED PRN PRN Reason: Excessive Vaginal Bleeding Sodium Chloride (Saline Flush) 10 ml FLUSH ASDIRECTED PRN PRN Reason: Keep Vein Open Sodium Chloride (Saline Flush) 2.5 ml FLUSH ASDIRECTED PRN PRN Reason: Keep Vein Open Sodium Chloride (Normal Saline) 10 ml IV ASDIRECTED PRN PRN Reason: IV Use Discontinued Medications Citric Acid/Sodium Citrate (Bicitra Solution) 30 ml PO ONETIME ONE Stop: 09/28/20 11:31 Dexamethasone (Dexamethasone) Confirm Administered Dose 20 mg .ROUTE .ST-MED ONE Stop: 09/28/20 12:57 Dexamethasone (Dexamethasone) Confirm Administered Dose 20 mg .ROUTE .ST-MED ONE Stop: 09/28/20 13:08 Ephedrine Sulfate (Ephedrine Sulfate) Confirm Administered Dose 50 mg .ROUTE .[facility]-MED ONE Stop: 09/28/20 13:00 Cefazolin Sodium/Dextrose 2 gm (/ Premix) 50 mls @ 100 mls/hr IV ONETIME ONE Stop: 09/28/20 11:59 Cefazolin Sodium/Dextrose (Ancef) Confirm Administered Dose 100 mls @ as directed .ROUTE .[facility]-MED ONE Stop: 09/28/20 12:14 Ketorolac Tromethamine (Toradol) Confirm Administered Dose 30 mg .ROUTE .ST-MED ONE Stop: 09/28/20 13:50 Morphine Sulfate (Duramorph Pf) Confirm Administered Dose 10 mg .ROUTE .ST-MED ONE Stop: 09/28/20 12:14 Octyl Cyanoacrylate (Dermabond Advance) Confirm Administered Dose 1 applic .ROUTE .ST-MED ONE Stop: 09/28/20 12:12 Ondansetron HCl (Zofran) Confirm Administered Dose 4 mg .ROUTE .ST-MED ONE Stop: 09/28/20 13:21 Ondansetron HCl (Zofran) Confirm Administered Dose 4 mg .ROUTE .STK-MED ONE Stop: 09/28/20 13:21 Oxytocin (Pitocin) Confirm Administered Dose 30 unit .ROUTE .ST-MED ONE Stop: 09/28/20 13:07 Oxytocin (Pitocin) Confirm Administered Dose 10 unit .ROUTE .STK-MED ONE Stop: 09/28/20 13:21 Propofol (Diprivan 20 Ml) Confirm Administered Dose 200 mg .ROUTE .STK-MED ONE Stop: 09/28/20 13:25 - Exam Wound/Incisions: Healing Well General: Alert, Oriented HEENT: Pupils Equal Neck: Supple Lungs: Clear to Auscultation, Normal Respiratory Effort Cardiovascular: Regular Rate, Regular Rhythm GI/Abdominal Exam: Normal Bowel Sounds, Soft, Non-Tender, No Organomegaly, No Distention, No Abnormal Bruit, No Mass, Pelvis Stable Extremities: Normal Inspection, Normal Range of Motion, Non-Tender, No Pedal Edema, Normal Capillary Refill Skin: Warm, Dry, Intact Neurological: No New Focal Deficit Psy/Mental Status: Alert, Normal Affect, Normal Mood Sepsis Event Note - Evaluation Sepsis Screening Result: No Definite Risk - Focused Exam Vital Signs: Vital Signs Temp Pulse Resp BP Pulse Ox 09/29/20 09:00 92 15 97 09/29/20 08:00 36.6 C 77 16 121/61 98 09/29/20 07:00 19 95 09/29/20 06:00 17 94 L 09/29/20 05:00 18 95 09/29/20 04:28 36.2 C 82 16 128/63 96 09/29/20 04:00 18 96 09/29/20 03:00 19 95 09/29/20 02:00 17 96 09/29/20 01:00 19 95 09/29/20 00:00 35.7 C L 74 18 124/62 95 09/28/20 23:00 18 95 09/28/20 22:00 17 96 - Problem List Review Problem List Initiated/Reviewed/Updated: Yes - My Orders Last 24 Hours: Active Orders 24 hr Category Date Time Status Patient Status [ADT] Routine ADT 09/28/20 12:39 Active Ambulate [RC] PER UNIT ROUTINE Care 09/28/20 12:39 Active Antiembolic Devices [RC] PER UNIT ROUTINE Care 09/28/20 12:39 Active Bradycardia-Neuroaxis [employer] [RC] ROUTINE Care 09/28/20 15:50 Active Bradycardia-Neuroaxis [employer] [RC] ROUTINE Care 09/28/20 17:58 Active Communication Order [RC] PER UNIT ROUTINE Care 09/28/20 12:39 Active Communication Order [RC] PER UNIT ROUTINE Care 09/28/20 12:39 Active Communication Order [RC] Per Unit Routine Care 09/28/20 12:39 Active Hypertension-Neuroaxis [employer] [RC] ROUTINE Care 09/28/20 15:50 Active Hypertension-Neuroaxis [employer] [RC] ROUTINE Care 09/28/20 17:58 Active Hypotension-Neuroaxis [employer] [RC] ROUTINE Care 09/28/20 15:50 Active Hypotension-Neuroaxis [employer] [RC] ROUTINE Care 09/28/20 17:58 Active May Shower [RC] ASDIRECTED Care 09/28/20 12:39 Active Notify Provider Vital Signs [RC] PRN Care 09/28/20 11:32 Active Procedure Site Prep Instruct [RC] ASDIRECTED Care 09/28/20 11:30 Active RT Incentive Spirometry [RC] Q2HWA Care 09/28/20 12:39 Active Up ad Jenae [RC] ASDIRECTED Care 09/28/20 11:30 Active Verify Patient Consent Obtain [RC] ASDIRECTED Care 09/28/20 11:30 Active Vital Signs [RC] Q1H Care 09/28/20 12:39 Active Regular Diet [DIET] Diet 09/28/20 Dinner Active RPR (SYPHILIS SERO) W/ RFLX [REF] Routine Lab 09/28/20 10:53 Received Acetaminophen/oxyCODONE [Percocet 325-5 MG] Med 09/28/20 12:38 Active 1 tab PO Q4H PRN Acetaminophen/oxyCODONE [Percocet 325-5 MG] Med 09/28/20 12:38 Active 2 tab PO Q4H PRN Docusate Sodium [Colace] Med 09/28/20 21:00 Active 100 mg PO BID Ibuprofen [Motrin] Med 09/28/20 12:38 Active 800 mg PO Q8H PRN Ketorolac [Toradol] Med 09/28/20 12:45 Active 30 mg IVPUSH Q6H Lactated Ringers [Ringers, Lactated] 1,000 ml Med 09/28/20 12:45 Active IV ASDIRECTED Lactated Ringers [Ringers, Lactated] 1,000 ml Med 09/28/20 11:30 Active IV BOLUS Lanolin [Lansinoh HPA] Med 09/28/20 12:38 Active See Dose Instructions TOP ASDIRECTED PRN Methylergonovine [Methergine] Med 09/28/20 12:38 Active 0.2 mg IM ONETIME PRN Nalbuphine [Nubain] Med 09/28/20 18:00 Active 5 mg IVPUSH Q6H PRN Naloxone [Narcan] Med 09/28/20 19:25 Active 0.1 mg IVPUSH ONETIME PRN Ondansetron [Zofran] Med 09/28/20 12:38 Active 4 mg IVPUSH Q4H PRN Oxytocin [Pitocin] Med 09/28/20 12:38 Active 10 unit IM ASDIRECTED PRN Oxytocin/0.9 % Sodium Chloride [Oxytocin 30 Unit/500 ML Med 09/28/20 11:30 Active -NS] 30 unit in 500 ml IV TITRATE Sodium Chloride 0.9% [Normal Saline] Med 09/28/20 11:30 Active 10 ml IV ASDIRECTED PRN Sodium Chloride 0.9% [Saline Flush] Med 09/28/20 11:30 Active 10 ml FLUSH ASDIRECTED PRN Sodium Chloride 0.9% [Saline Flush] Med 09/28/20 11:30 Active 2.5 ml FLUSH ASDIRECTED PRN Tranexamic Acid [Cyklokapron] 1,000 mg Med 09/28/20 12:38 Active Sodium Chloride 0.9% [Normal Saline] 100 ml IV ONETIME bisacodyL [Dulcolax] Med 09/28/20 12:38 Active 10 mg RECTAL ONETIME PRN diphenhydrAMINE [Benadryl] Med 09/28/20 12:38 Active 25 mg IVPUSH Q6H PRN miSOPROStoL [Cytotec] Med 09/28/20 12:38 Active 1,000 mcg RECTAL ONETIME PRN Assess Lochia [WOMSER] Per Unit Routine Oth 09/28/20 12:39 Ordered Assess Uterine Involution [WOMSER] Per Unit Routine Oth 09/28/20 12:39 Ordered Breast Pump [WOMSER] Per Unit Routine Oth 09/28/20 12:39 Ordered Peripheral IV Discontinue [OM.PC] Routine Oth 09/28/20 12:39 Ordered Peripheral IV Insertion Adult [OM.PC] Routine Oth 09/28/20 11:30 Ordered Schedule Procedure [COMM] Per Unit Routine Oth 09/28/20 11:30 Ordered Sequential Compression Device [OM.PC] Per Unit Routine Oth 09/28/20 12:39 Ordered Resuscitation Status Routine Resus Stat 09/28/20 11:30 Ordered Medication Orders Bisacodyl (Dulcolax) 10 mg RECTAL ONETIME PRN PRN Reason: Constipation Diphenhydramine HCl (Benadryl) 25 mg IVPUSH Q6H PRN PRN Reason: Itching or Nausea Last Admin: 09/28/20 14:26 Dose: 25 mg Documented by: CAROLINE Docusate Sodium (Colace) 100 mg PO BID [facility] Last Admin: 09/28/20 20:16 Dose: 100 mg Documented by: MANDIE Emollient Ointment (Lansinoh Hpa) 0 gm TOP ASDIRECTED PRN PRN Reason: Sore Nipples Oxytocin/Sodium Chloride (Oxytocin 30 Unit/500 Ml-Ns) 30 unit in 500 mls @ 250 mls/hr IV TITRATE [facility] Lactated Ringer's (Ringers, Lactated) 1,000 mls @ 500 mls/hr IV BOLUS [facility] Last Admin: 09/28/20 11:45 Dose: 999 mls/hr Documented by: Infusion: 09/28/20 11:45 Dose: 999 mls/hr Documented by: Admin: 09/28/20 10:55 Dose: 999 mls/hr Documented by: CAROLINE Lactated Ringer's (Ringers, Lactated) 1,000 mls @ 125 mls/hr IV ASDIRECTED [facility] Last Admin: 09/28/20 17:00 Dose: 125 mls/hr Documented by: CAROLINE Tranexamic Acid 1,000 mg/ (Sodium Chloride) 110 mls @ 660 mls/hr IV ONETIME PRN PRN Reason: Bleeding Ibuprofen (Motrin) 800 mg PO Q8H PRN PRN Reason: mild pain or fever Ketorolac Tromethamine (Toradol) 30 mg IVPUSH Q6H [facility] Stop: 09/29/20 12:46 Last Admin: 09/29/20 07:56 Dose: 30 mg Documented by: Admin: 09/29/20 01:58 Dose: 30 mg Documented by: Admin: 09/28/20 20:12 Dose: 30 mg Documented by: Admin: 09/28/20 13:50 Dose: 30 mg Documented by: CAROLINE Methylergonovine Maleate (Methergine) 0.2 mg IM ONETIME PRN PRN Reason: Excessive Vaginal Bleeding Misoprostol (Cytotec) 1,000 mcg RECTAL ONETIME PRN PRN Reason: excessive bleeding Nalbuphine HCl (Nubain) 5 mg IVPUSH Q6H PRN PRN Reason: Itching Last Admin: 09/29/20 02:05 Dose: 5 mg Documented by: Admin: 09/28/20 18:20 Dose: 5 mg Documented by: CAROLINE Naloxone HCl (Narcan) 0.1 mg IVPUSH ONETIME PRN PRN Reason: Respiratory Depression Ondansetron HCl (Zofran) 4 mg IVPUSH Q4H PRN PRN Reason: Nausea/Vomiting Oxycodone/Acetaminophen (Percocet 325-5 Mg) 1 tab PO Q4H PRN PRN Reason: Pain (moderate 4-6) Oxycodone/Acetaminophen (Percocet 325-5 Mg) 2 tab PO Q4H PRN PRN Reason: Pain (moderate 4-6) Oxytocin (Pitocin) 10 unit IM ASDIRECTED PRN PRN Reason: Excessive Vaginal Bleeding Sodium Chloride (Saline Flush) 10 ml FLUSH ASDIRECTED PRN PRN Reason: Keep Vein Open Sodium Chloride (Saline Flush) 2.5 ml FLUSH ASDIRECTED PRN PRN Reason: Keep Vein Open Sodium Chloride (Normal Saline) 10 ml IV ASDIRECTED PRN PRN Reason: IV Use - Assessment Assessment (Free Text/Narrative):: Status post section postoperative day #1 the patient is doing well today on regular diet and voiding without any problem incision is clean dry. We are planning to send her home in a.m.
[2020-09-29] MEDS: Docusate Sodium 100 MG Cap PO SCH ×2 (09:35→19:48)
--- NOTE | 2020-09-29 09:53 | PCM48HPAN ---
Post Anesthesia Note - EVALUATION WITHIN 48HRS OF ANESTHETIC Vital Signs in Normal Range: Yes Patient Participated in Evaluation: Yes Respiratory Function Stable: Yes Airway Patent: Yes Cardiovascular Function Stable: Yes Hydration Status Stable: Yes Pain Control Satisfactory: Yes Nausea and Vomiting Control Satisfactory: Yes Mental Status Recovered: Yes Vital Signs: Last Vital Signs Temp 36.6 C 09/29/20 08:00 Pulse 92 09/29/20 09:00 Resp 15 09/29/20 09:00 BP 121/61 09/29/20 08:00 Pulse Ox 97 09/29/20 09:00
[2020-09-29] MEDS: Ibuprofen 800 MG Tab PO PRN (19:47)
[2020-09-29] MEDS: Acetaminophen/oxyCODONE 325-5 MG Tab PO PRN (23:52)
[2020-09-30] MEDS: Ibuprofen 800 MG Tab PO PRN ×2 (03:54→12:43)
[2020-09-30] MEDS: Acetaminophen/oxyCODONE 325-5 MG Tab PO PRN (07:40)
--- NOTE | 2020-09-30 10:48 | PCM.PNPP ---
- General Info Date of Service: 09/30/20 Functional Status: Reports: Pain Controlled - Review of Systems General: Reports: No Symptoms HEENT: Reports: No Symptoms Pulmonary: Reports: No Symptoms Cardiovascular: Reports: No Symptoms Gastrointestinal: Reports: No Symptoms Genitourinary: Reports: No Symptoms Musculoskeletal: Reports: No Symptoms Skin: Reports: No Symptoms Neurological: Reports: No Symptoms Psychiatric: Reports: No Symptoms - General Info Date of Service: 09/30/20 - Patient Data Vital Signs - Most Recent: Last Vital Signs Temp 36.3 C 09/30/20 07:53 Pulse 78 09/30/20 07:53 Resp 16 09/30/20 07:53 BP 106/70 09/30/20 07:53 Pulse Ox 98 09/30/20 07:53 Weight - Most Recent: 85.729 kg Lab Results - Last 24 Hours: Laboratory Results - last 24 hr 09/28/20 Range/Units 10:53 RPR Non-Reac (Non-Reac) Med Orders - Current: Current Medications Bisacodyl (Dulcolax) 10 mg RECTAL ONETIME PRN PRN Reason: Constipation Diphenhydramine HCl (Benadryl) 25 mg IVPUSH Q6H PRN PRN Reason: Itching or Nausea Last Admin: 09/28/20 14:26 Dose: 25 mg Documented by: Docusate Sodium (Colace) 100 mg PO BID [facility] Last Admin: 09/29/20 19:48 Dose: 100 mg Documented by: Emollient Ointment (Lansinoh Hpa) 0 gm TOP ASDIRECTED PRN PRN Reason: Sore Nipples Oxytocin/Sodium Chloride (Oxytocin 30 Unit/500 Ml-Ns) 30 unit in 500 mls @ 250 mls/hr IV TITRATE [facility] Lactated Ringer's (Ringers, Lactated) 1,000 mls @ 500 mls/hr IV BOLUS [facility] Last Admin: 09/28/20 11:45 Dose: 999 mls/hr Documented by: Lactated Ringer's (Ringers, Lactated) 1,000 mls @ 125 mls/hr IV ASDIRECTED [facility] Last Admin: 09/28/20 17:00 Dose: 125 mls/hr Documented by: Tranexamic Acid 1,000 mg/ (Sodium Chloride) 110 mls @ 660 mls/hr IV ONETIME PRN PRN Reason: Bleeding Ibuprofen (Motrin) 800 mg PO Q8H PRN PRN Reason: mild pain or fever Last Admin: 09/30/20 03:54 Dose: 800 mg Documented by: Methylergonovine Maleate (Methergine) 0.2 mg IM ONETIME PRN PRN Reason: Excessive Vaginal Bleeding Misoprostol (Cytotec) 1,000 mcg RECTAL ONETIME PRN PRN Reason: excessive bleeding Nalbuphine HCl (Nubain) 5 mg IVPUSH Q6H PRN PRN Reason: Itching Last Admin: 09/29/20 02:05 Dose: 5 mg Documented by: Naloxone HCl (Narcan) 0.1 mg IVPUSH ONETIME PRN PRN Reason: Respiratory Depression Ondansetron HCl (Zofran) 4 mg IVPUSH Q4H PRN PRN Reason: Nausea/Vomiting Oxycodone/Acetaminophen (Percocet 325-5 Mg) 1 tab PO Q4H PRN PRN Reason: Pain (moderate 4-6) Last Admin: 09/30/20 07:40 Dose: 1 tab Documented by: Oxycodone/Acetaminophen (Percocet 325-5 Mg) 2 tab PO Q4H PRN PRN Reason: Pain (moderate 4-6) Oxytocin (Pitocin) 10 unit IM ASDIRECTED PRN PRN Reason: Excessive Vaginal Bleeding Sodium Chloride (Saline Flush) 10 ml FLUSH ASDIRECTED PRN PRN Reason: Keep Vein Open Sodium Chloride (Saline Flush) 2.5 ml FLUSH ASDIRECTED PRN PRN Reason: Keep Vein Open Sodium Chloride (Normal Saline) 10 ml IV ASDIRECTED PRN PRN Reason: IV Use Discontinued Medications Citric Acid/Sodium Citrate (Bicitra Solution) 30 ml PO ONETIME ONE Stop: 09/28/20 11:31 Dexamethasone (Dexamethasone) Confirm Administered Dose 20 mg .ROUTE .STK-MED ONE Stop: 09/28/20 12:57 Dexamethasone (Dexamethasone) Confirm Administered Dose 20 mg .ROUTE .STK-MED ONE Stop: 09/28/20 13:08 Ephedrine Sulfate (Ephedrine Sulfate) Confirm Administered Dose 50 mg .ROUTE .STK-MED ONE Stop: 09/28/20 13:00 Cefazolin Sodium/Dextrose 2 gm (/ Premix) 50 mls @ 100 mls/hr IV ONETIME ONE Stop: 09/28/20 11:59 Cefazolin Sodium/Dextrose (Ancef) Confirm Administered Dose 100 mls @ as directed .ROUTE .STK-MED ONE Stop: 09/28/20 12:14 Ketorolac Tromethamine (Toradol) 30 mg IVPUSH Q6H [facility] Stop: 09/29/20 12:46 Last Admin: 09/29/20 13:00 Dose: 30 mg Documented by: Ketorolac Tromethamine (Toradol) Confirm Administered Dose 30 mg .ROUTE .STK-MED ONE Stop: 09/28/20 13:50 Morphine Sulfate (Duramorph Pf) Confirm Administered Dose 10 mg .ROUTE .STK-MED ONE Stop: 09/28/20 12:14 Octyl Cyanoacrylate (Dermabond Advance) Confirm Administered Dose 1 applic .ROUTE .STK-MED ONE Stop: 09/28/20 12:12 Ondansetron HCl (Zofran) Confirm Administered Dose 4 mg .ROUTE .STK-MED ONE Stop: 09/28/20 13:21 Ondansetron HCl (Zofran) Confirm Administered Dose 4 mg .ROUTE .STK-MED ONE Stop: 09/28/20 13:21 Oxytocin (Pitocin) Confirm Administered Dose 30 unit .ROUTE .STK-MED ONE Stop: 09/28/20 13:07 Oxytocin (Pitocin) Confirm Administered Dose 10 unit .ROUTE .STK-MED ONE Stop: 09/28/20 13:21 Propofol (Diprivan 20 Ml) Confirm Administered Dose 200 mg .ROUTE .STK-MED ONE Stop: 09/28/20 13:25 - Infant Interaction Disposition, : in Room with Family Interaction: Holding Feeding: Bottle Fed Support Person: Mother - Recovery Exam Fundal Tone: Firm Fundal Level: At Umbilicus Fundal Placement: Midline Lochia Amount: Scant Lochia Color: Rubra/Red Perineum Description: Intact, Minimal Bruising/Swelling Episiotomy/Laceration: None Bladder Status: Nonpalpable, Voiding Urinary Elimination: Other (see below) Other Urinary Elimination, : due to void - Exam General: Alert, Oriented HEENT: Pupils Equal Neck: Supple Lungs: Clear to Auscultation, Normal Respiratory Effort Cardiovascular: Regular Rate, Regular Rhythm GI/Abdominal Exam: Normal Bowel Sounds, Soft, Non-Tender, No Organomegaly, No Distention, No Abnormal Bruit, No Mass, Pelvis Stable Extremities: Normal Inspection, Normal Range of Motion, Non-Tender, No Pedal Edema, Normal Capillary Refill Skin: Warm, Dry, Intact Wound/Incisions: Healing Well Neurological: No New Focal Deficit Psy/Mental Status: Alert, Normal Affect, Normal Mood - Problem List Review Problem List Initiated/Reviewed/Updated: Yes - Assessment Assessment:: Doing well. - Plan Plan:: G6 now P4 S/P uncomplicated RLTCS at 39 weeks (HAROLDO: 10/05/20). A+, rubella immune, GBS negative. Positive UDS in early (THC); most recent UDS on 09/25/20 also positive for THC. Mom and baby doing well. P: Routine plan of care. PP Day 1 A: Bottle feeding ; bonding well with baby. Ambulating and tolerating diet. No concerns/questions at this time. P: Routine plan of care; Dr. Rose updated.
[2020-09-30 12:32] VITALS: BP 120/74; PULSE 77
--- NOTE | 2020-10-01 17:19 | OR ---
SURGEON: Ayah Joaquin MD DATE OF PROCEDURE: 09/28/2020 INDICATION FOR SURGERY: Term , history of prior . PREOPERATIVE DIAGNOSIS: Term . POSTOPERATIVE DIAGNOSIS: Term . OPERATION: Repeat section. PRIMARY SURGEON: Ayah Joaquin MD, and Robbi Rose MD OCCUPATIONAL REHABILITATION AIDE: Ana Calixto. ANESTHESIA: Spinal. ANESTHESIOLOGIST: Dr. Moya. ESTIMATED BLOOD LOSS: 400 mL. URINE OUTPUT: Adequate. DRAIN AND PACK: Aly catheter draining clear urine. SPECIMEN: None. FINDINGS: Live , baby boy. score of 8 and 9. weight 6 pounds 1 ounce. COMPLICATIONS: None. TECHNIQUE: Janna Zapata was taken to the operating room. She was transferred to the operating table and placed in the dorsal supine position with a leftward tilt. After adequate anesthesia was confirmed, she was prepped and draped in the usual sterile fashion. A time-out was completed. With IV running and Aly catheter draining, a Pfannenstiel skin incision was made. The incision was carried down with the Bovie cautery through the subcutaneous tissue to the underlying rectus fascia. The rectus fascia was incised in the midline and extended laterally with the Partida scissors. The underlying rectus muscles were dissected off sharply and bluntly. The rectus muscles were then in the midline and the parietal peritoneum was entered. A bladder blade and Borrego retractors were placed. The lower uterine segment was identified in the surgical field and a bladder flap was made. The lower uterine segment was incised in a transverse fashion and the incision was extended laterally with a cephalocaudal traction. The infant's vertex was delivered atraumatically followed by the remainder of the infant. The cord was clamped and cut, and the infant was handed off to the pediatric staff. Cord gas was collected. Placenta was then delivered manually. The uterus was cleared of all clots and debris and the incision was reapproximated in a running lock stitch fashion utilizing a 0 Vicryl. A second stitch imbricating the first layer was performed utilizing the same 0 Vicryl. Hemostasis was excellent. The gutter was cleared of all clots and debris. All operative sites were examined and found to be hemostatic. The retractors were removed. The peritoneum was closed with a running stitch fashion utilizing a 3- 0 Vicryl. The rectus fascia was reapproximated with a PDS in a running stitch fashion. The subcutaneous layer was also closed with a running stitch utilizing a 3-0 Vicryl. Hemostasis was excellent. The skin was closed with a 4-0 Monocryl in a subcuticular fashion. All lap, sponges, needle, and instrument counts were correct per the OR nursing staff x2. The patient was taken to the recovery room in a stable condition. The patient had received 2 g of Ancef prior to the procedure. PASTORA NICOLE /[id number]
== END 2020-09-30 14:00 | disposition home or self-care (01) | DRG 787 ==
LOC: MW.OBCHECK 10:21 → MW.OB 10:23 → MW.OBCHECK 13:54 → MW.OB 16:45
PROVIDERS: ADMIT Obstetrics & Gynecology; ATTEND Obstetrics & Gynecology
PROC: 10D00Z1 Extraction of Products of Conception, Low, Open Approach (ICD-10-PCS; principal; 2020-09-28)
DX: O34.211 Maternal care for low transverse scar from previous cesarean delivery (principal); O99.324 Drug use complicating childbirth; Z37.0 Single live birth; O99.334 Smoking (tobacco) complicating childbirth; F17.200 Nicotine dependence, unspecified, uncomplicated; F12.90 Cannabis use, unspecified, uncomplicated
CPT/HCPCS: 36415; 59025; 85014; 85018; 85027; 86592; 86850; 86900; 86901; A9270-GY; J0690; J1100; J1200; J1885; J2270; J2300; J2405; J2590; J2704; J7120

== ENCOUNTER 2021-06-08 13:21 | Emergency (ER) | payer OTHER ==
--- NOTE | 2021-06-08 15:11 | EDM.PDOC ---
ED HPI GENERAL MEDICAL PROBLEM - General Chief Complaint: Lower Extremity Injury/Pain Stated Complaint: INJURY TO RIGHT ANKLE/FOOT Time Seen by Provider: 06/08/21 15:11 Source of Information: Reports: Patient History Limitations: Reports: No Limitations - History of Present Illness INITIAL COMMENTS - FREE TEXT/NARRATIVE: HISTORY AND PHYSICAL: History of present illness: The patient is a 30-year-old female who presents to the emergency room with complaints of right lateral foot pain after missing a step off and rolling her right ankle inversion prior to arrival. The patient did not take any medication prior to arrival. Patient denies any fever, chills, headache, change in vision, syncope or near syncope. Denies any chest pain, back pain, shortness of breath or cough. Denies any abdominal pain, nausea, vomiting, diarrhea, constipation or dysuria. Has not noted any blood in urine or stool. Patient has been eating and drinking appropriately. Review of systems: As per history of present illness and below otherwise all systems reviewed and negative. Past medical history: As per history of present illness and as reviewed below otherwise noncontributory. Surgical history: As per history of present illness and as reviewed below otherwise noncontributory. Social history: See social history for further information Family history: As per history of present illness and as reviewed below otherwise noncontributory. Physical exam: General: Well developed and well nourished. Alert and orientated x 3. Nontoxic in appearance and in no acute distress. Vital signs are stable and have been reviewed by me. Nursing notes were reviewed. HEENT: Atraumatic, normocephalic, pupils equal and reactive bilaterally, negative for conjunctival pallor or scleral icterus, mucous membranes moist, trachea midline. No drooling or trismus noted. No meningeal signs. No hot potato voice noted. Lungs: Normal work of breathing, no accessory muscles used. Skin: Intact, warm, dry. No lesions or rashes noted. Hematologic: No petechiae or purpra. Mucosa appropriate color and normal nail bed color and refill. Extremities: Right dorsum of foot swollen and tender to touch. Pain with dorsiflexion but tolerates plantar flexion. Neurologically intact. Moves all other extremities per self without difficulty or deficits, negative for cords or calf pain. Neurovascular unremarkable. Neuro: Awake, alert, oriented. Cranial nerves II through XII unremarkable. Cerebellum unremarkable. Motor and sensory unremarkable throughout. Exam nonfocal. Psychiatric: Mood and affect are appropriate. Normal thought process. Answering questions appropriately. Notes: *This patient was seen and evaluated during the 2019 SARS-CoV-2 novel coronavirus pandemic period. Community viral transmission is ongoing at time of this encounter and the emergency department is operating under pandemic response procedures. As stated above the patient is a 30-year-old female who was stepping down off of a podium and missed the step off inverting her right ankle. The patient is having pain on the dorsum of the foot with some swelling. I have ordered an x- ray of her foot and ankle and we will treat her pain with Toradol injection. The patient is agreeable with this plan. Right foot x-ray Findings: Bones: Alignment is normal. No fractures or bone lesions. Joint spaces: Unremarkable. Soft tissues: Unremarkable. I have explained to the patient she has an ankle/foot sprain and I will prescribe a walking boot and have her off work for 2 days. I discussed with the patient the need to rest, elevate, and apply ice to her ankle/foot over the next 2 days as much as possible. I also instructed the patient that if she continues to have pain she might need to follow-up with an orthopedic surgeon. The patient is agreeable with this discharge plan. I have talked with the patient about today's findings, in addition to providing specific details for plan of care. Reassessment at the time of disposition demonstrates that the patient is in no acute distress. The patient is stable for discharge, counseling was provided and we discussed in great detail signs and symptoms that would prompt them to return to the Emergency Department. Medication, follow up and supportive care measures were reviewed and discussed. Voices understanding and is agreeable to plan of care. Denies any further qu estions or concerns at this time. Diagnostics: Right foot and ankle x-ray Therapeutics: Toradol 60 mg IM Prescription:Walking boot for right lateral foot/ankle sprain to increase joint stability and ride comfort for the patient for 5 days. Impression: Right ankle/foot sprain Plan: 1. You were evaluated today on an emergent basis. Your complaints of right lateral foot pain was evaluated with an x-ray and found to be just soft tissue swelling. There is no fracture. You have strained your side of your foot and the top of your foot which we will treat with a walking boot. For the next 48 hours please stay off of your foot you can take Tylenol or Motrin as needed for pain management. Use ice every 20 minutes on and 20 minutes off for the next 24 hours and then after that you can use heat or ice whichever one makes it feel better. I given you a work note. You continue to have pain you will need to follow-up with an orthopedic surgeon to evaluate your right foot. 2. You can alternate Tylenol and ibuprofen as needed for pain and fever management. 3. We encourage you to follow up with your primary care provider and/or recommended specialist in the next few days for re-evaluation and further care/management. 4. If your symptoms should worsen, new symptoms develop or any of the signs and symptoms we discussed should arise please return to the emergency room or call 911 (if needed). Definitive disposition and diagnosis as appropriate pending reevaluation and review of above. 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: Musculoskeletal History: Reports: None Neurological History: Reports: Concussion, Migraines Psychiatric History: Reports: Anxiety, Bipolar, Depression, Mood Swings, Panic Attack Endocrine/Metabolic History: Reports: None Hematologic History: Reports: None Immunologic History: Reports: None Oncologic (Cancer) History: Reports: None Dermatologic History: Reports: None - Infectious Disease History Infectious Disease History: Reports: Chicken Pox - Past Surgical History HEENT Surgical History: Reports: None GI Surgical History: Reports: None Female Surgical History: Reports: Section Social & Family History - Family History Family Medical History: No Pertinent Family History Cardiac: Reports: Hypertension OBGYN: Reports: Neurological: Reports: Alzheimers Disease Psychiatric: Reports: Anxiety, Depression Endocrine/Metabolic: Reports: Diabetes, type II - Tobacco Use Tobacco Use Status *Q: Current Every Day Tobacco User Years of Tobacco use: 10 Packs/Tins Daily: 1 - Caffeine Use Caffeine Use: Reports: None - Recreational Drug Use Recreational Drug Use: Yes Drug Use in Last 12 Months: Yes Recreational Drug Type: Reports: Marijuana/Hashish Review of Systems - Review of Systems Review Of Systems: Comprehensive ROS is negative, except as noted in HPI. ED EXAM, GENERAL - Physical Exam Exam: See Below (See dictation) Course - Vital Signs Last Recorded V/S: Last Vital Signs Temp 97.2 F 06/08/21 16:49 Pulse 66 06/08/21 16:49 Resp 16 06/08/21 16:49 BP 109/62 06/08/21 16:49 Pulse Ox 96 06/08/21 16:49 - Orders/Labs/Meds Orders: Active Orders 24 hr Category Date Time Status DME for Discharge [COMM] Stat Oth 06/08/21 16:31 Ordered Meds: Medications Discontinued Medications Generic Name Dose Route Start Last Admin Trade Name Freq PRN Reason Stop Dose Admin Ketorolac Tromethamine 60 mg 06/08/21 15:28 06/08/21 15:39 Ketorolac 60 Mg/2 Ml Sdv IM 06/08/21 15:29 60 mg ONETIME ONE Administration Departure - Departure Time of Disposition: 16:30 Disposition: Home, Self-Care 01 Condition: Good Clinical Impression: Right ankle sprain Qualifiers: Encounter type: initial encounter Involved ligament of ankle: unspecified ligament Qualified Code(s): S93.401A - Sprain of unspecified ligament of right ankle, initial encounter Right foot sprain Qualifiers: Encounter type: initial encounter Qualified Code(s): S93.601A - Unspecified sprain of right foot, initial encounter - Discharge Information *PRESCRIPTION DRUG MONITORING PROGRAM REVIEWED*: Not Applicable *COPY OF PRESCRIPTION DRUG MONITORING REPORT IN PATIENT CONRAD: Not Applicable Instructions: Foot Sprain Referrals: PCP,None [Primary Care Provider] - Forms: ED Department Discharge Additional Instructions: The following information is given to patients seen in the emergency department who are being discharged to home. This information is to outline your options for follow-up care. We provide all patients seen in our emergency department with a follow-up referral. The need for follow-up, as well as the timing and circumstances, are variable depending upon the specifics of your emergency department visit. If you don't have a primary care physician on staff, we will provide you with a referral. We always advise you to contact your personal physician following an emergency department visit to inform them of the circumstance of the visit and for follow-up with them and/or the need for any referrals to a consulting specialist. The emergency department will also refer you to a specialist when appropriate. This referral assures that you have the opportunity for follow-up care with a specialist. All of these measure are taken in an effort to provide you with optimal care, which includes your follow-up. Under all circumstances we always encourage you to contact your private physician who remains a resource for coordinating your care. When calling for follow-up care, please make the office aware that this follow-up is from your recent emergency room visit. If for any reason you are refused follow-up, please contact the [facility] Emergency Department at and asked to speak to the emergency department charge nurse. [facility] [address] [place] [id number] [facility] [address] [place] [id number] Plan: 1. You were evaluated today on an emergent basis. Your complaints of right lateral foot pain was evaluated with an x-ray and found to be just soft tissue swelling. There is no fracture. You have strained your side of your foot and the top of your foot which we will treat with a walking boot. For the next 48 hours please stay off of your foot you can take Tylenol or Motrin as needed for pain management. Use ice every 20 minutes on and 20 minutes off for the next 24 hours and then after that you can use heat or ice whichever one makes it feel better. I given you a work note. You continue to have pain you will need to follow-up with an orthopedic surgeon to evaluate your right foot. 2. You can alternate Tylenol and ibuprofen as needed for pain and fever management. 3. We encourage you to follow up with your primary care provider and/or recommended specialist in the next few days for re-evaluation and further care/management. 4. If your symptoms should worsen, new symptoms develop or any of the signs and symptoms we discussed should arise please return to the emergency room or call 911 (if needed). Sepsis Event Note (ED) - Evaluation Sepsis Screening Result: No Definite Risk - Focused Exam Vital Signs: Vital Signs Temp Pulse Resp BP Pulse Ox 06/08/21 16:49 97.2 F 66 16 109/62 96 06/08/21 16:11 97.2 F 62 16 104/58 L 96 06/08/21 13:41 97.7 F 82 18 130/65 98 - My Orders Last 24 Hours: My Active Orders 06/08/21 16:31 DME for Discharge [COMM] Stat - Assessment/Plan Last 24 Hours: My Active Orders 06/08/21 16:31 DME for Discharge [COMM] Stat
[2021-06-08] MEDS ORDERED: Ketorolac 60 MG/2 ML SDV IM ONE (15:28)
--- NOTE | 2021-06-08 16:15 | CR ---
Indication: Lateral pain Technique: Two views Comparison: None Findings: Bones: Alignment is normal. No fractures or bone lesions. Joint spaces: Unremarkable. Soft tissues: Unremarkable. Dictated by Dawit Ma MD @ 06/08/2021 4:14:35 PM (Electronically Signed)
--- NOTE | 2021-06-08 16:17 | CR ---
Indication: Lateral pain Technique: Two views Comparison: None Findings: Bones: Alignment is normal. No fractures or bone lesions. Joint spaces: Unremarkable. Soft tissues: Unremarkable. Dictated by Dawit Ma MD @ 06/08/2021 4:15:30 PM (Electronically Signed)
[2021-06-08 16:50] VITALS: BP 109/62; PULSE 66
== END 2021-06-08 16:52 | disposition home or self-care (01) ==
LOC: MW.ED 13:21
DX: S93.401A Sprain of unspecified ligament of right ankle, initial encounter (principal); S93.601A Unspecified sprain of right foot, initial encounter; Z72.0 Tobacco use; X50.1XXA Overexertion from prolonged static or awkward postures, initial encounter
CPT/HCPCS: 73600; 73620; 96372; 99283; J1885

== ENCOUNTER 2022-02-14 09:36 | Emergency (ER) | payer SELFPAY ==
[2022-02-14] MEDS ORDERED: Benzocaine 20% Topical Spray UD MUCMEM ONE (09:50)
[2022-02-14] MEDS ORDERED: Lidocaine 2% Jelly 30 ML Tube MUCMEM STA (09:50)
[2022-02-14] MEDS ORDERED: Lidocaine 2% Viscous Solution 15 ML UD ONE (09:54)
[2022-02-14] MEDS ORDERED: Lidocaine 2% Viscous Solution 15 ML UD PO ONE (09:54)
[2022-02-14 11:09] VITALS: BP 139/86; PULSE 76
== END 2022-02-14 11:09 | disposition home or self-care (01) ==
LOC: MW.ED 09:36
DX: K04.7 Periapical abscess without sinus (principal); Z79.899 Other long term (current) drug therapy
CPT/HCPCS: 81025; 99283; A9270

== ENCOUNTER 2024-07-11 11:29 | Emergency (ER) | payer SELFPAY ==
[2024-07-11 11:51] VITALS: BP 107/67
[2024-07-11] MEDS: Ibuprofen 600 MG Tab PO ONE (12:55)
[2024-07-11 14:33] VITALS: PULSE 63
== END 2024-07-11 14:33 | disposition home or self-care (01) ==
LOC: MW.ED 11:29
DX: S62.354A Nondisplaced fracture of shaft of fourth metacarpal bone, right hand, initial encounter for closed fracture (principal); S62.356A Nondisplaced fracture of shaft of fifth metacarpal bone, right hand, initial encounter for closed fracture; Z75.8 Other problems related to medical facilities and other health care; W20.8XXA Other cause of strike by thrown, projected or falling object, initial encounter
CPT/HCPCS: 29125; 73130; 99283; A9270

== ENCOUNTER 2025-06-16 19:33 | Emergency (ER) | payer SELFPAY ==
[2025-06-16 20:16] LABS: BASOPHILS ABSOLUTE AUTO 0.05 K/uL (0.00-0.20); BASOPHILS PERCENT AUTO 0.4 % (0.0-1.0); EOSINOPHILS ABSOLUTE AUTO 0.13 K/uL (0.00-0.45); EOSINOPHILS PERCENT AUTO 1.1 % (0.0-6.0); IMMATURE GRAN ABSOLUTE AUTO 0.04 K/uL (0.00-0.05); IMMATURE GRAN PERCENT AUTO 0.3 % (0.0-0.4); LYMPHOCYTES ABSOLUTE AUTO 2.90 K/uL (1.00-4.80); LYMPHOCYTES PERCENT AUTO 23.5 % (24.0-44.0); MEAN PLATELET VOLUME 10.7 fL (9.4-12.3); MONOCYTES ABSOLUTE AUTO 0.91 K/uL (0.00-0.80); MONOCYTES PERCENT AUTO 7.4 % (0.0-8.0); NEUTROPHILS ABSOLUTE AUTO 8.31 K/uL (1.80-7.70); NEUTROPHILS PERCENT AUTO 67.3 % (41.0-71.0); NRBC ABSOLUTE 0.00 K/uL (0.00-0.02); NRBC PERCENT 0.0 /100WBC (0.0-0.2); PLATELET COUNT,PLT 230 K/uL (150-400); RED BLOOD CELL COUNT 4.61 M/uL (4.10-5.30); WHITE BLOOD CELL COUNT,WBC 12.34 K/uL (3.9-11.3)
[2025-06-16 20:18] LABS: GLUCOSE,URINE NEGATIVE (NEGATIVE); OCCULT BLOOD,URINE LARGE (NEGATIVE)
[2025-06-16 20:20] LABS: APPEARANCE,URINE BLOODY
[2025-06-16] MEDS: Ondansetron 4 MG Tab.DIS PO ONE (20:53)
[2025-06-16 21:06] LABS: A/G RATIO 1.2 (0.9-1.6); ALANINE AMINOTRANSFERASE,ALT 36.0 IU/L (14-63); ASPARTATE AMNIOTRANSFERASE,AST 18.0 IU/L (15-37); BILIRUBIN TOTAL 0.4 mg/dL (0.2-1.0); BLOOD UREA NITROGEN,BUN 11.0 mg/dL (7.0-18.0); CARBON DIOXIDE,CO2 25.0 mmol/L (21.0-32.0); CHLORIDE,CL 104.0 mmol/L (98-107); CREATININE 0.6 mg/dL (0.6-1.0); EST CRCL DRUG DOSING (CG) 126.01 mL/min; GLUCOSE RANDOM 100.0 mg/dL (74-106); POTASSIUM,K 3.7 mmol/L (3.5-5.1); PROTEIN TOTAL,TP 7.2 g/dL (6.4-8.2); SODIUM,NA 140.0 mmol/L (136-145)
[2025-06-16 21:07] LABS: ESTIMATED GFR 122.0 mL/min (>60); HCG QUANTITATIVE 43121.0 mIU/mL
[2025-06-16 21:38] VITALS: BP 131/68; PULSE 68
== END 2025-06-17 00:07 | disposition home or self-care (01) ==
LOC: MW.ED 19:33
DX: O20.0 Threatened abortion (principal); Z75.3 Unavailability and inaccessibility of health-care facilities; Z3A.00 Weeks of gestation of pregnancy not specified
CPT/HCPCS: 36415; 76801; 76817; 80053; 81001; 81025; 84702; 85025; 86900; 86901; 99284; A9270; 99283